=== PATIENT | female | born 1970 | race Caucasian/White ===

== ENCOUNTER 2020-10-10 17:05 | Outpatient (REF) | payer OTHER, SELFPAY | END 2020-10-10 17:06 | disposition home or self-care (01) | LOC: HO.LAB 17:05 | PROVIDERS: PCP Hospitalist; Visit Provider Internal Medicine | DX: Z20.828 Contact with and (suspected) exposure to other viral communicable diseases (principal) | CPT/HCPCS: C9803; U0003 ==

== ENCOUNTER 2020-12-18 16:30 | Outpatient (REF) | payer OTHER, SELFPAY ==
--- NOTE | 2020-12-18 16:52 | XR_ITS ---
EXAMINATION: XR CHEST CLINICAL INFORMATION: Spiral infection. COMPARISON: Chest x-ray 10/05/2018 TECHNIQUE: Frontal view of the chest was obtained. FINDINGS: Lungs are clear. No pulmonary vascular congestion. There is no pleural effusion. The heart size is normal. The cardiac and mediastinal contours are normal. Orthopedic plate and screws at lower cervical spine. XR/XR chest 1V IMPRESSION: Unremarkable examination.
== END 2020-12-18 16:31 | disposition home or self-care (01) ==
LOC: HO.XRAY 16:30
PROVIDERS: PCP Hospitalist; Visit Provider Hospitalist
DX: B34.9 Viral infection, unspecified (principal); Z80.0 Family history of malignant neoplasm of digestive organs
CPT/HCPCS: 71045

== ENCOUNTER 2023-09-30 11:41 | Outpatient (AMB) | payer OTHER, SELFPAY ==
[2023-09-30 11:46] VITALS: BP 98/60; PULSE 94; RESP 13; TEMP 37.2; O2SAT 95; BMI 27.6
--- NOTE | 2023-09-30 11:46 | AM.OFFWIN_ITS ---
Intake Vital Signs 09/30/23 11:46 Height 5 ft 9 in Weight 187 lb BMI 27.6 BP 98/60 Blood Pressure Location Lt brachial Position Sitting Respiration 13 Pulse 94 Pulse Source Pulse Oximeter Temp 98.9 F Temp Source Oral Pulse Oximetry (%) 95 Oxygen Delivery Method Room Air Intake Visit Reasons: frequent urination, blurred vision Intake Note: Patient presents with frequent urination, blurred vision, extreme thirst x4-5 days. Patient Tobacco Use Status: Never used Tobacco Medical Office Rep Required: No Accompanied by: Self / Same As Patient Allergies bee pollen [BEE STINGS] Allergy (Severe, Verified 09/30/23 12:59) ANAPHYLAXIS tramadol Allergy (Severe, Verified 09/30/23 12:59) mental confusion cinnamon [CINNAMON] Allergy (Intermediate, Verified 09/30/23 12:59) HIVES trazodone [TRAZODONE] Allergy (Intermediate, Verified 09/30/23 12:59) PER H&P, ? Medication List - Last Reconciled 09/30/23 by KAMERON Hirsch- amitriptyline 25 mg PO BEDTIME duloxetine 120 mg PO DAILY indomethacin 50 mg PO TID 14 days mirtazapine 7.5 - 15 mg PO BEDTIME PRN Do you need a note to return to daycare/school/sports/work: No HPI HPI Comments History of Present Illness Details Today with complaints sudden onset urinary frequency dry mouth blurred vision palpitations. Reports a few weeks ago developing he has infection which she treated womx-vqy-lxxexav products. She this in itself is bizarre she had no reason to get a yeast infection. The pozc-izt-smbjfsp treatment did help her symptoms. Over the last week or so when she developed urinary frequency. She is urinating 7 times in 1 hour. Her mouth is so dry she does not feel like she can get up to drink. Her vision is blurry reported as seeing double. She is aware of her being in her chest but denies chest pain. During the middle of the night last night she woke up vomiting with some abdominal pain. [facility] Medical History Anxiety Back pain Bilateral carpal tunnel syndrome Chronic pain of left lower extremity DDD (degenerative disc disease) Depression Persistent mood [affective] disorder, unspecified Surgical History History of back surgery History of neck surgery History of tonsillectomy History of tubal ligation History of umbilical hernia repair History of wisdom tooth extraction Family History Father Liver failure Mother No problems noted. Social History Housing: House Alcohol intake: never Patient Tobacco Use Status: Never used Tobacco e-Cigarette/Vaping Use: Never Used Second Hand Smoke Exposure: No Substance Use Type: Marijuana service: No Current occupational status: employed Cognitive needs: Yes (cane) Hearing needs: No Vision needs: No Review of Systems Const All systems reviewed & are unremarkable except as noted in HPI and below Physical Exam Vital Signs: Last Vital Signs Temp 98.9 F 09/30/23 11:46 Pulse 94 09/30/23 11:46 Resp 13 09/30/23 11:46 BP 98/60 09/30/23 11:46 Pulse Ox 95 09/30/23 11:46 Oxygen Delivery Method Room Air 09/30/23 11:46 BMI result Body Mass Index 27.6 Const Other: awake alert oriented, in NAD Orbits sunken MM dry, asked for several glasses of h20 during the visit and voided several times as well Tachycardic, regular Speaking in full sentences Results AMB Urinalysis Dipstick UR Leukocytes Negative Last Edit by Lupis Gandara CMA on 09/30/23 12:00 UR Nitrite Negative Last Edit by Lupis Gandara CMA on 09/30/23 12: 00 UR Urobilinogen Normal Last Edit by Lupis Gandara CMA on 09/30/23 12:00 UR Protein Trace Last Edit by Lupis Gandara CMA on 09/30/23 12:00 UR Ph 5.0 Last Edit by Lupis Gandara CMA on 09/30/23 12:00 UR Blood Large Last Edit by Lupis Gandara CMA on 09/30/23 12:00 UR Specific [place] 1.005 Last Edit by Lupis Gandara CMA on 12:00 UR Ketone Small Last Edit by Lupis Gandara CMA on 09/30/23 12:00 UR Bilirubin Negative Last Edit by Lupis Gandara CMA on 09/30/23 12:00 UR Glucose 2000 Last Edit by Lupis Gandara CMA on 09/30/23 12:00 AMB Random Glucose (hemocue) AMB Random Glucose (hemocue) 600 mg/dL Last Edit by Desmond Gannon MA on 09/30/23 14:04 reading appeared as HI ( 600+) Results Reviewed Results Reviewed: Laboratory Last Values Random Glu (Clinic) 600 mg/dL 09/30/23 14:01 Urine pH (Clinic) 5.0 09/30/23 11:57 Specific [place] (Clinic) 1.005 09/30/23 11:57 Ur Protein (Clinic) Trace 09/30/23 11:57 Ur Ketones (Clinic) Small 09/30/23 11:57 Urine Blood (Clinic) Large 09/30/23 11:57 Urine Nitrite Negative 09/30/23 11:57 Urine Bilirubin (Clinic) Negative 09/30/23 11:57 Urobilinogen (Clinic) Normal 09/30/23 11:57 Leukocyte Esterase (Clinic) Negative 09/30/23 11:57 Urine Glucose (Clinic) 2000 09/30/23 11:57 Assessment & Plan Assessment & Plan (1) Hyperglycemia: Code(s): R73.9 - Hyperglycemia, unspecified Orders: Orders AMB Urinalysis Dipstick Today Z13.9 - Encounter for screening, unspecified Glucose, Whole Blood Today R73.9 - Hyperglycemia, unspecified AMB Hemoglobin A1c Today Z13.9 - Encounter for screening, unspecified Patient Instructions: Random fingerstick done in office today reading ?high ?. During visit in the office lost power, so we were unable to conduct a hemoglobin A1c. Given her complaints, the urine which shows glucose greater than 2000 with small ketones, & the high random blood glucose I have advised her to seek care in the emergency room. She wishes to go to [facility] Emergency Room in [place]. Her is with her and is able to drive her. I called over to [facility] emergency room and spoke with the triage nurse, warm handoff given. Patient was made aware before she left that she needs close follow-up with her PCP in to be sure to follow-up once her acute care workup is complete. Coding Level of Care Code Est Pt Level 3 (22879) Diagnoses Hyperglycemia R73.9
== END 2023-09-30 13:47 | disposition home or self-care (01) ==
PROVIDERS: PCP Hospitalist; Visit Provider Nurse Practitioner Family
DX: Z13.9 Encounter for screening, unspecified (principal); R73.9 Hyperglycemia, unspecified
CPT/HCPCS: 81002; 99213

== ENCOUNTER 2023-10-14 09:51 | Outpatient (AMB) | payer OTHER, SELFPAY ==
--- NOTE | 2023-10-14 10:21 | MHC.PC.OV ---
Vital Signs 10/14/23 10:22 Height 5 ft 9 in Weight 179 lb 8 oz BMI 26.5 BP 122/68 Blood Pressure Location Rt brachial Position Sitting Pulse 67 Pulse Source Pulse Oximeter Pulse Oximetry (%) 95 Oxygen Delivery Method Room Air Intake Visit Reasons: follow up high bs Intake Note: Patient is here to follow up on high bs. Service Consultant Required: No Communications Tech: Not Required per policy Accompanied by: Self / Same As Patient Allergies bee pollen [BEE STINGS] Allergy (Severe, Verified 10/14/23 10:54) ANAPHYLAXIS tramadol Allergy (Severe, Verified 10/14/23 10:54) mental confusion cinnamon [CINNAMON] Allergy (Intermediate, Verified 10/14/23 10:54) HIVES trazodone [TRAZODONE] Allergy (Intermediate, Verified 10/14/23 10:54) PER H&P, ? Medication List - Last Reconciled 10/14/23 by Kayla Roca, [facility]- amitriptyline 25 mg PO BEDTIME duloxetine 120 mg PO DAILY indomethacin 50 mg PO TID 14 days metformin ER 1,000 mg PO QPM mirtazapine 7.5 - 15 mg PO BEDTIME PRN Tobacco use date assessed: 10/14/23 Dental Screening Dental Screen Date: 10/14/23 Did you have a dental visit in the last 12 months?: Yes Did you have a dental problem in the last 6 months where you did not have access to dental care?: No Was dental information given to patient?: Patient has dentist HPI HPI Comments History of Present Illness Details Here today to f/u on new dx of DM Went to [facility] for hyperglycemia. Treated w/ one dose of insulin and sent home w/ Metformin 500mg BID, took 2 days and then stopped d/t GI upset. She does not have a glucometer so has not been testing at home. cont to have dry mouth, urinary freq, blurred vision and a headache. [facility] Medical History Anxiety Back pain Bilateral carpal tunnel syndrome Chronic pain of left lower extremity DDD (degenerative disc disease) Depression Persistent mood [affective] disorder, unspecified Surgical History History of umbilical hernia repair History of back surgery History of tonsillectomy History of tubal ligation History of wisdom tooth extraction History of neck surgery Family History Father Liver failure Mother No problems noted. Social History Housing: House Alcohol intake: never Patient Tobacco Use Status: Never used Tobacco e-Cigarette/Vaping Use: Never Used Second Hand Smoke Exposure: No Substance Use Type: Marijuana service: No Current occupational status: employed Cognitive needs: Yes (cane) Hearing needs: No Vision needs: No Questionnaire Thrive Questionnaire Date Thrive assessed: 01/09/23 CARSON-7 AMB Questionnaire CARSON-7 Date CARSON - 7 assessed: 01/09/23 Source: Developed by Drs. Vahid Mayberry, Maren Harris, Chema Singh and colleagues, with an educational torito from [employer]. Physical exam (Primary Care) Vital Signs: Last Vital Signs Pulse 67 10/14/23 10:22 BP 122/68 10/14/23 10:22 Pulse Ox 95 10/14/23 10:22 Oxygen Delivery Method Room Air 10/14/23 10:22 BMI result Body Mass Index 26.5 Tobacco/Smoking Status: Tobacco use Status Tobacco use date assessed 10/14/23 10/14/23 10:33 Patient Tobacco Use Status Never used Tobacco 10/14/23 10:33 e-Cigarette/Vaping Use Never Used 10/14/23 10:33 Thrive Assessment: Date of Thrive Assessment Date Thrive assessed 01/09/23 10/14/23 10:33 Const Other: awake alert NAD MM dry LS CTAB RRR Results AMB Hemoglobin A1c AMB Hemoglobin A1c 10.8 % Last Edit by FRANCI Banda on 10/14/23 10:38 Results Reviewed Results Reviewed: Laboratory Last Values Hgb A1c (Clinic) 10.8 % (4.0-6.0) H 10/14/23 10:19 Assessment and Plan Assessment & Plan (1) Diabetes mellitus: Code(s): E11.9 - Type 2 diabetes mellitus without complications Qualifiers: Diabetes mellitus complication status: with hyperglycemia Diabetes mellitus manager intermediate insulin use: without manager intermediate use (2) Hyperglycemia: Code(s): R73.9 - Hyperglycemia, unspecified Plan will test add'l labs to determine Type of DM, referrals as placed. She should test blood sugar QID at home. Lots of edu provided to her about the new dx. She should f/u with PCP group in 2 weeks. Bring glucose log w/ her. Lipid profile will need to be run when she is fasting, which is not today. Orders: Orders C Peptide Today E11.9 - Type 2 diabetes mellitus without complications, R73.9 - Hyperglycemia, unspecified Insulin Auto Antibody Today E11.9 - Type 2 diabetes mellitus without complications, R73.9 - Hyperglycemia, unspecified Liver Panel Today E11.9 - Type 2 diabetes mellitus without complications, R73.9 - Hyperglycemia, unspecified AMB Hemoglobin A1c Today R73.9 - Hyperglycemia, unspecified ZNT8 Antibodies Today E11.9 - Type 2 diabetes mellitus without complications, R73.9 - Hyperglycemia, unspecified Glutamic acid decarboxylase Ab Today E11.9 - Type 2 diabetes mellitus without complications, R73.9 - Hyperglycemia, unspecified Islet Cell Antibody Scrn/Titer Today E11.9 - Type 2 diabetes mellitus without complications, R73.9 - Hyperglycemia, unspecified Referrals Endocrinology Referral E11.9 - Type 2 diabetes mellitus without complications, R73.9 - Hyperglycemia, unspecified Diabetes Education Referral E11.9 - Type 2 diabetes mellitus without complications, R73.9 - Hyperglycemia, unspecified Diabetic Eye Exam Referral E11.9 - Type 2 diabetes mellitus without complications, R73.9 - Hyperglycemia, unspecified Medications: New metformin ER 1,000 mg PO QPM 30 tabs 0RF blood-glucose meter (OneTouch Verio Flex Start kit) As directed 1 ea 0RF Coding Level of Care Code Est Pt Level 5 (13075) Diagnoses Diabetes mellitus E11.9 Diabetes mellitus complication status: with hyperglycemia Diabetes mellitus retirement insulin use: without retirement use Hyperglycemia R73.9
[2023-10-14 10:22] VITALS: BP 122/68; PULSE 67; O2SAT 95; BMI 26.5
== END 2023-10-14 11:25 | disposition home or self-care (01) ==
PROVIDERS: PCP Hospitalist; Visit Provider Nurse Practitioner Family
DX: E11.65 Type 2 diabetes mellitus with hyperglycemia (principal)
CPT/HCPCS: 83036; 99214

== ENCOUNTER 2023-10-14 11:23 | Outpatient (REF) | payer OTHER, SELFPAY ==
[2023-10-14 14:59] LABS: MANUAL DIFF FLAG NO
[2023-10-14 15:11] LABS: Basophils Percent Auto 0.7 % (0-2); Eosinophils Absolute Auto 0.2 X10*3/uL (0.0-0.4); Eosinophils Percent Auto 3.6 % (0-4); Hematocrit 45.8 % (37.0-47.0); Hemoglobin 15.4 g/dl (12.0-16.0); Imm Gran Abs Auto 0.01 X10*3/uL (0.00-0.03); Imm Gran Pct Auto 0.2 % (0.0-0.4); Lymphocytes Absolute Auto 2.6 X10*3/uL (1.2-4.9); Lymphocytes Percent Auto 46.7 % (20-40); Mean Corpuscular HGB Conc 33.6 g/dl (31.0-35.0); Mean Corpuscular Volume 92.3 fL (80.0-98.0); Mean Platelet Volume 10.8 fL (9.4-12.3); Monocytes Absolute Auto 0.2 X10*3/uL (0.1-1.2); Monocytes Percent Auto 3.8 % (2-11); Neutrophils Absolute Auto 2.5 x10*3/uL (2.0-8.3); Platelet Count 290 X10*3/uL (160-400); Red Blood Count 4.96 X10*6/uL (4.20-5.50); Red Cell Distribution Width 12.5 % (11.0-16.0); White Blood Count 5.5 X10*3/uL (4.8-10.8)
[2023-10-14 15:27] LABS: Uric Acid 2.3 mg/dL (2.4-5.7)
[2023-10-14 15:33] LABS: Alanine Aminotransferase 21 U/L (0-31); Albumin Level 4.2 g/dL (3.5-5.0); Alkaline Phosphatase 117 U/L (39-117); Anion Gap 10 (12-20); Aspartate Amino Transferase 17 U/L (5-31); Bilirubin Direct < 0.2 mg/dL (0.0-0.5); Bilirubin Total 0.2 mg/dL (0.0-1.0); Blood Urea Nitrogen 17 mg/dL (9-16); Carbon Dioxide 27 mmol/L (22-29); Chloride 104 mmol/L (96-108); Cholesterol 227 mg/dL (<200); Estimated Glomerular Filt Rate > 60; Glucose Fasting 335 mg/dL (60-99); HDL Cholesterol 36 mg/dL (>40); LDL Cholesterol Calculated 127 mg/dL (<100); Potassium 4.4 mmol/L (3.3-5.1); Sodium 137 mmol/L (135-145); Total Protein 7.2 g/dL (6.5-8.0); Triglycerides 321 mg/dL (<150)
[2023-10-14 15:44] LABS: TSH reflex Free T4 1.27 uIU/mL (0.32-4.0)
[2023-10-16 04:54] LABS: C Peptide 2.85 ng/mL (0.80-3.85)
[2023-10-17 20:28] LABS: Glutamic acid decarboxylase Ab <5 IU/mL (<5)
[2023-10-20 23:23] LABS: Islet Cell Antibody Screen NEGATIVE (NEGATIVE)
[2023-10-21 19:53] LABS: ZNT8 Antibodies <10 U/mL (<15)
[2023-10-24 19:34] LABS: Insulin Auto Antibody <0.4 U/mL (<0.4)
== END 2023-10-14 11:24 | disposition home or self-care (01) ==
LOC: HO.WFDLDS 11:23
PROVIDERS: Hospitalist; Visit Provider Nurse Practitioner Family
DX: M10.9 Gout, unspecified (principal); E66.3 Overweight; E11.65 Type 2 diabetes mellitus with hyperglycemia
CPT/HCPCS: 36415; 80053; 80061; 80076; 82248; 84443; 84550; 84681; 85025; 86337; 86341

== ENCOUNTER 2023-12-16 09:53 | Outpatient (AMB) | payer OTHER, SELFPAY ==
--- NOTE | 2023-12-16 10:09 | A.OFFPC_ITS ---
Vital Signs 12/16/23 10:10 Height 5 ft 9 in Weight 180 lb 0.2 oz BMI 26.6 BP 102/78 Blood Pressure Location Lt brachial Position Sitting Pulse 73 Pulse Source Pulse Oximeter Pulse Oximetry (%) 97 Oxygen Delivery Method Room Air Intake Visit Reasons: R Elbow pain Intake Note: pt states right elbow pain and right knee pain X2-3weeks with burning sensation Senior Adults Director Required: No Allergies bee pollen [BEE STINGS] Allergy (Severe, Verified 12/16/23 10:23) ANAPHYLAXIS tramadol Allergy (Severe, Verified 12/16/23 10:23) mental confusion cinnamon [CINNAMON] Allergy (Intermediate, Verified 12/16/23 10:23) HIVES trazodone [TRAZODONE] Allergy (Intermediate, Verified 12/16/23 10:23) PER H&P, ? Medication List - Last Reconciled 12/16/23 by ZACHARY HirschP-BC alcohol swabs (BD Alcohol Swabs) pad topical amitriptyline 25 mg PO BEDTIME blood-glucose meter (OneTouch Verio Flex Meter) As directed blood-glucose meter (OneTouch Verio Flex Start kit) As directed duloxetine 120 mg PO DAILY empagliflozin (Jardiance) 10 mg PO DAILY hydroxyzine pamoate 25 mg PO TID indomethacin 50 mg PO TID 14 days insulin glargine (Lantus Solostar U-100 Insulin) 10 units subcut BEDTIME metformin ER 1,000 mg PO QPM mirtazapine 7.5 - 15 mg PO BEDTIME PRN pen needle, diabetic (BD Ultra-Fine Short Pen Needle) As directed prazosin 2 mg PO BID Tobacco use date assessed: 12/16/23 HPI HPI Comments History of Present Illness Details Here today with complaints of right elbow pain. Reports onset about a few weeks ago in the setting frequent repetitive movement of wheelchairs. Since onset the pain is worse. She has noted some swelling. Denies any overt injury. Using Epsom salt to help without relief. Leaning on the elbow does increase the pain as does normal range of motion. Denies fever chills or trauma. Also complains of pain in the right knee. Reports that this is chronic and has been present for years. Over the last few weeks she has noticed that when climbing stairs the knee has a cracking sensation and feels like it is going to give out. Denies any new injury to the knee. Further denies any redness swelling fever or chills. [facility] Medical History Anxiety Back pain Bilateral carpal tunnel syndrome Chronic pain of left lower extremity DDD (degenerative disc disease) Depression Persistent mood [affective] disorder, unspecified Surgical History History of umbilical hernia repair History of back surgery History of tonsillectomy History of tubal ligation History of wisdom tooth extraction History of neck surgery Family History Father Liver failure Mother No problems noted. Social History Housing: House Alcohol intake: never Patient Tobacco Use Status: Never used Tobacco e-Cigarette/Vaping Use: Never Used Second Hand Smoke Exposure: No Substance Use Type: Marijuana service: No Current occupational status: employed Cognitive needs: Yes (cane) Hearing needs: No Vision needs: No Questionnaire Thrive Questionnaire Date Thrive assessed: 01/09/23 AUDIT C Alcohol Use Questionnaire (AUDIT-C) 1. How often do you have a drink containing alcohol?: Never Total Score: 0 CARSON-7 AMB Questionnaire CARSON-7 Date CARSON - 7 assessed: 01/09/23 Source: Developed by Drs. Vahid Mayberry, Maren Harris, Chema Singh and colleagues, with an educational torito from [employer]. Review of Systems Const All systems reviewed & are unremarkable except as noted in HPI and below Physical exam (Primary Care) Vital Signs: Last Vital Signs Pulse 73 12/16/23 10:10 BP 102/78 12/16/23 10:10 Pulse Ox 97 12/16/23 10:10 Oxygen Delivery Method Room Air 12/16/23 10:10 BMI result Body Mass Index 26.6 Tobacco/Smoking Status: Tobacco use Status Tobacco use date assessed 12/16/23 12/16/23 10:15 Patient Tobacco Use Status Never used Tobacco 12/16/23 10:15 e-Cigarette/Vaping Use Never Used 12/16/23 10:15 Thrive Assessment: Date of Thrive Assessment Date Thrive assessed 01/09/23 12/16/23 10:15 Const Other: Awake alert oriented no acute distress Right elbow full range of motion active and passive, no erythema, warmth, ecchymosis, deformity. Pain over olecranon with pressure. Right knee with full range of motion active and passive, no erythema, warmth, ecchymosis, deformity. Positive crepitus with range of motion. Ambulating with normal gait without assistive device. Assessment and Plan Assessment & Plan (1) Knee pain, right anterior: Code(s): M25.561 - Pain in right knee (2) Crepitus of joint of right knee: Code(s): M23.8X1 - Other internal derangements of right knee (3) Olecranon bursitis of right elbow: Code(s): M70.21 - Olecranon bursitis, right elbow Plan Total time spent caring for the patient today was 35 minutes. This includes time spent before the visit reviewing the chart, time spent during the visit, and time spent after the visit on documentation Orders: Orders XR knee RT 4V Today M23.8X1 - Other internal derangements of right knee, M25.561 - Pain in right knee Referrals Orthopedics Referral M23.8X1 - Other internal derangements of right knee, M25.561 - Pain in right knee Medications: Changed From indomethacin administer with food or milk 50 mg PO TID 14 days 42 caps 0RF To indomethacin administer with food or milk 50 mg PO TID 14 days PRN 42 caps 0RF pain Patient Instructions: ADVISED TO PURCHASE AN [id number] COUNTERFORCE BAND USE DIRECTED. OKAY TO CONTINUE USING EPSOM SALT SOAKS. ADVISED TO PERFORM THE HOME EXERCISES THAT WERE PROVIDED TO HER AT THE VISIT TODAY. IT ALSO PRESCRIBED AND SO THAT SHE CAN USE NEEDED FOR PAIN. FOR HER KNEE PAIN I HAVE ORDERED AN X-RAY AND REFER HER TO ORTHOPEDICS. SHE SHOULD FOLLOW UP WITH ORTHO. Coding Level of Care Code Est Pt Level 4 (48215) Diagnoses Knee pain, right anterior M25.561 Crepitus of joint of right knee M23.8X1 Olecranon bursitis of right elbow M70.21
[2023-12-16 10:10] VITALS: BP 102/78; PULSE 73; O2SAT 97; BMI 26.6
== END 2023-12-16 10:38 | disposition home or self-care (01) ==
PROVIDERS: PCP Hospitalist; Visit Provider Nurse Practitioner Family
DX: M25.561 Pain in right knee (principal); M23.8X1 Other internal derangements of right knee; M70.21 Olecranon bursitis, right elbow
CPT/HCPCS: 99214

== ENCOUNTER 2023-12-28 16:52 | Outpatient (REF) | payer SELFPAY ==
--- NOTE | ~2023-12-28 | XR_ITS ---
EXAMINATION: XR KNEE, RIGHT CLINICAL INFORMATION: Other internal arrangement of right knee COMPARISON: None available. TECHNIQUE: Four views of the right knee. FINDINGS: No fracture or joint effusion. Alignment is anatomic. Joint spaces are maintained. No abnormal soft tissue calcification. XR/XR knee RT 4V IMPRESSION: Normal right knee.
== END 2023-12-28 16:53 | disposition home or self-care (01) ==
LOC: HO.XRAY 16:52
PROVIDERS: Visit Provider Nurse Practitioner Family
DX: M25.561 Pain in right knee (principal); M23.8X1 Other internal derangements of right knee
CPT/HCPCS: 73564

== ENCOUNTER 2024-01-05 10:09 | Outpatient (REF) | payer SELFPAY ==
--- NOTE | ~2024-01-05 | XR_ITS ---
EXAMINATION: XR KNEE AP STANDING X-RAY RIGHT KNEE SUNRISE VIEW CLINICAL INFORMATION: Pain. COMPARISON: Radiograph right knee 12/28/2023. TECHNIQUE: AP bilateral standing view of the knees was obtained. Single sunrise view of the right knee. FINDINGS: No fracture or subluxation. Mild joint space narrowing in the medial compartments bilaterally. 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 No osseous erosions. No unusual soft tissue calcifications. XR/XR knee standing BI IMPRESSION: 1. No acute fractures or malalignment. 2. 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 3. 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
--- NOTE | ~2024-01-05 | XR_ITS ---
EXAMINATION: XR KNEE AP STANDING X-RAY RIGHT KNEE SUNRISE VIEW CLINICAL INFORMATION: Pain. COMPARISON: Radiograph right knee 12/28/2023. TECHNIQUE: AP bilateral standing view of the knees was obtained. Single sunrise view of the right knee. FINDINGS: No fracture or subluxation. Mild joint space narrowing in the medial compartments bilaterally. 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 No osseous erosions. No unusual soft tissue calcifications. XR/XR knee RT 1V IMPRESSION: 1. No acute fractures or malalignment. 2. 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 3. 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
== END 2024-01-05 10:10 | disposition home or self-care (01) ==
LOC: HO.HOSX 10:09
PROVIDERS: Visit Provider Physician Assistant
DX: S80.01XA Contusion of right knee, initial encounter (principal); E11.9 Type 2 diabetes mellitus without complications
CPT/HCPCS: 20610; 73560; 73565; 99202; J1020

== ENCOUNTER 2024-01-05 10:44 | Outpatient (AMB) | payer SELFPAY ==
[2024-01-05 10:57] VITALS: BMI 26.6
--- NOTE | 2024-01-05 10:57 | MHC.OFFVIS ---
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 Patient reports ongoing pain for a couple months. She states that her pain is focused on the medial aspect of the knee. Hx of injury about 4 months ago. Hx of NSAIDs mild relief. Hx of Knee Brace with mild relief. She states that she was moving her bed and she tripped on the bed frame landing on her right knee. Allergies bee pollen [BEE STINGS] Allergy (Severe, Verified 01/05/24 11:00) ANAPHYLAXIS tramadol Allergy (Severe, Verified 01/05/24 11:00) mental confusion cinnamon [CINNAMON] Allergy (Intermediate, Verified 01/05/24 11:00) HIVES trazodone [TRAZODONE] Allergy (Intermediate, Verified 01/05/24 11:00) PER H&P, ? HPI BIOLOGICAL ENGINEER-Right knee pain HPI Details 53-year-old female who presents in the office today, as a new patient, for an evaluation of right knee pain. The patient was seen by her PCP on 12/16/2023 where she was sent for x-rays. While in the office today the patient reports an injury to the knee about 4 months ago, in 08/2023, when she was moving her bed when she tripped on the bed frame causing her to land on her knee. She claims her pain is on the medial aspect of the right knee. She reports using NSAIDs and a knee brace with mild relief. Patient has a significant medical history of diabetes mellitus on insulin. [facility] Medical History Anxiety Back pain Bilateral carpal tunnel syndrome Chronic pain of left lower extremity DDD (degenerative disc disease) Depression Persistent mood [affective] disorder, unspecified Surgical History History of umbilical hernia repair History of back surgery History of tonsillectomy History of tubal ligation History of wisdom tooth extraction History of neck surgery Family History Father Liver failure Mother No problems noted. 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 No ecchymosis, erythema, or joint effusion. No tenderness to palpation to the medial or lateral joint lines. Pain with patella grind. No excessive laxity involving the patella. Full knee extension and flexion. Negative Rebecca's. Negative anterior drawer. NVI. Office Procedures Joint Injection/Drain Joint Injection/Drain Primary Site: right knee Prep: site was prepped using aseptic technique, ethochloride spray was applied and injection warnings given Injected: 40 mg of, DepoMedrol, with 8 mL of (2% plain lido ) and in the joint Approach Used: anterolateral Procedure: The patient tolerated the procedure well, but had some pain with the injection and there was some relief with the local anesthesia Coding 46098 - Large joint Procedure code (CPT) selection complete Assessment & Plan Assessment & Plan (1) Contusion of right knee: Code(s): S80.01XA - Contusion of right knee, initial encounter (2) Diabetes mellitus: Code(s): E11.9 - Type 2 diabetes mellitus without complications Qualifiers: Diabetes mellitus complication status: with hyperglycemia Diabetes mellitus long-term insulin use: without long-term use Plan Ms. Huertas is a 53-year-old female who presents in the office today, as a new patient, for an evaluation of right knee pain. The patient was seen by her PCP on 12/16/2023 where she was sent for x-rays. While in the office today the patient reports an injury to the knee about 4 months ago, in 08/2023, when she was moving her bed when she tripped on the bed frame causing her to land on her knee. She claims her pain is on the medial aspect of the right knee. She reports using NSAIDs and a knee brace with mild relief. Patient has a significant medical history of diabetes mellitus on insulin. The patient was offered a cortisone injection in the right knee with 40 mg of DepoMedrol. The patient was explained the risk, benefits, and alternatives to receiving this injection. After receiving consent for the injection, the patient had the procedure done while in office today. The patient tolerated the procedure well with no complications. Due to the patient?s history of diabetes, they were instructed to monitor her blood glucose level. The patient was informed that they could see a rise in their numbers and if the numbers became too high, they were instructed to call their PCP. The patient was also informed that they could have facial flushing as a side effect of the injection but this will pass. In the event this does not given the patient relief the next action would be to move forward with formal physical therapy or a possible MRI. Follow up will be PRN, or sooner if needed. X-rays of the right knee which were obtained while in the office today and were reviewed by me, Suzanne Colmenares PA-C, revealed no acute fracture or dislocation. X-rays of the right knee, obtained on 12/28/2023, revealed no acute fracture or dislocation. Orders: Orders XR knee standing BI Today M25.569 - Pain in unspecified knee XR knee RT 1V Today M25.569 - Pain in unspecified knee Patient Instructions: Scribed by Sherron Patterson medical program specialist, for Suzanne Colmenares PA-C on 01/05/2024 at 10:48 am, EST. Coding Level of Care Code New Pt Level 4 (34173) Diagnoses Contusion of right knee S80.01XA Diabetes mellitus E11.9 Diabetes mellitus complication status: with hyperglycemia Diabetes mellitus intermediate card tender insulin use: without long-term use CPT Codes Coding - 81924 Large joint: 57167 - Large joint ([id number])
== END 2024-01-05 11:35 | disposition home or self-care (01) ==
PROVIDERS: PCP Nurse Practitioner Family; Visit Provider Physician Assistant
DX: S80.01XA Contusion of right knee, initial encounter (principal); W01.0XXA Fall on same level from slipping, tripping and stumbling without subsequent striking against object, initial encounter; E11.9 Type 2 diabetes mellitus without complications
CPT/HCPCS: 20610; 99204

== ENCOUNTER 2024-02-05 10:06 | Outpatient (AMB) | payer OTHER, SELFPAY ==
[2024-02-05 10:11] VITALS: BP 132/62; PULSE 91; RESP 12; TEMP 35.9; O2SAT 98; BMI 26.8
--- NOTE | 2024-02-05 10:11 | MHC.PC.OV ---
Vital Signs 02/05/24 10:11 Height 5 ft 8 in Weight 176 lb BMI 26.8 BP 132/62 Blood Pressure Location Rt brachial Position Sitting Respiration 12 Pulse 91 Pulse Source Pulse Oximeter Temp 96.6 F L Temp Source Temporal Artery Scan Pulse Oximetry (%) 98 Oxygen Delivery Method Room Air Intake Visit Reasons: Cramps Intake Note: Patient reports feeling cramping in her pelvic area radiating to her low-mid back. Patient admits she has not taken her diabetic diagnosis well and reports she is trying to get back on track. Patient states her urine output is very little at a time. Community Planning Technician Required: No Accompanied by: Self / Same As Patient Allergies bee pollen [BEE STINGS] Allergy (Severe, Verified 02/05/24 10:39) ANAPHYLAXIS tramadol Allergy (Severe, Verified 02/05/24 10:39) mental confusion cinnamon [CINNAMON] Allergy (Intermediate, Verified 02/05/24 10:39) HIVES trazodone [TRAZODONE] Allergy (Intermediate, Verified 02/05/24 10:39) PER H&P, ? Medication List - Last Reconciled 02/05/24 by KAMERON Hirsch-BC alcohol swabs (BD Alcohol Swabs) pad topical amitriptyline 25 mg PO BEDTIME blood-glucose meter (OneTouch Verio Flex Meter) As directed blood-glucose meter (OneTouch Verio Flex Start kit) As directed duloxetine 120 mg PO DAILY empagliflozin (Jardiance) 10 mg PO DAILY insulin glargine (Lantus Solostar U-100 Insulin) 10 units subcut BEDTIME mirtazapine 7.5 - 15 mg PO BEDTIME PRN pen needle, diabetic (BD Ultra-Fine Short Pen Needle) As directed prazosin 2 mg PO BID Tobacco use date assessed: 12/16/23 HPI HPI Comments History of Present Illness Details Here today w/ cramps in abd, RLQ pain over all feeling crappy for the last week + nausea, poor po intake, T 101 last night, took Motrin Last BM yesterday normal Denies vomiting, no vaginal bleeding or discharge Last blood sugar was 138mg/dl yesterday Unintentional wt loss Denies abd surgery. Holding down on the RLQ provides some relief of the pain [facility] Medical History Anxiety Back pain Bilateral carpal tunnel syndrome Chronic pain of left lower extremity DDD (degenerative disc disease) Depression Persistent mood [affective] disorder, unspecified Surgical History History of umbilical hernia repair History of back surgery History of tonsillectomy History of tubal ligation History of wisdom tooth extraction History of neck surgery Family History Father Liver failure Mother No problems noted. 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 Vahid Mayberry, Maren Harris, Chema Singh and colleagues, with an educational torito from [employer]. Review of Systems Const All systems reviewed & are unremarkable except as noted in HPI and below Physical exam (Primary Care) Vital Signs: Last Vital Signs Temp 96.6 F L 02/05/24 10:11 Pulse 91 02/05/24 10:11 Resp 12 02/05/24 10:11 BP 132/62 02/05/24 10:11 Pulse Ox 98 02/05/24 10:11 Oxygen Delivery Method Room Air 02/05/24 10:11 BMI result Body Mass Index 26.8 Tobacco/Smoking Status: Tobacco use Status Tobacco use date assessed 12/16/23 02/05/24 10:17 Patient Tobacco Use Status Never used Tobacco 02/05/24 10:17 e-Cigarette/Vaping Use Never Used 02/05/24 10:17 Thrive Assessment: Date of Thrive Assessment Date Thrive assessed 01/09/23 02/05/24 10:17 Const Other: awake alert mildly ill appearing scleras nonicteric MMM RRR LS CTAB Abd gaurding RLQ, + rebound tenderness RLQ, + psoas sign, hypoactive BS x 4, Assessment and Plan Assessment & Plan (1) Acute abdomen: Comment: [place] [facility] [place]. Code(s): R10.0 - Acute abdomen Plan Total time spent caring for the patient today was 30 minutes. This includes time spent before the visit reviewing the chart, time spent during the visit, and time spent after the visit on documentation This note is constructed using voice recognition software. While every effort has been made to ensure accuracy in test baker, still errors may have been included Sometimes, these errors may affect the content or meaning of the given sentence . Patient Instructions: NPO Private vehicle directly [place] [facility] [place] further eval and tx of acute abd. Coding Level of Care Code Est Pt Level 4 (42299) Diagnoses Acute abdomen R10.0
== END 2024-02-05 10:46 | disposition home or self-care (01) ==
PROVIDERS: PCP Nurse Practitioner Family; Visit Provider Nurse Practitioner Family
DX: R10.0 Acute abdomen (principal)
CPT/HCPCS: 99214

== ENCOUNTER 2024-02-05 11:19 | Emergency (ER) | payer OTHER, SELFPAY ==
[2024-02-05 11:37] VITALS: BP 127/77; PULSE 69; RESP 17; TEMP 36.3; O2SAT 94; BMI 21.4
--- NOTE | 2024-02-05 11:40 | ED_ITS ---
HPI - General Adult General Chief complaint: Abdominal Pain Stated complaint: Abd pain right side Time Seen by Provider: 02/05/24 16:19 Source: patient Mode of arrival: ambulatory Limitations: no limitations History of Present Illness HPI narrative: Patient is a 54 year old assigned female at with a history of DM, anxiety, and depression presenting to the emergency department today with abdominal pain. Patient states that over the last week she has had abdominal pain. Patient denies any dizziness, lightheadedness, nausea, vomiting, fever, chills, blurry vision, double vision, loss of vision, chest pain, difficulty breathing, shortness of breath, back pain, night sweats, pain with urination, increased urinary frequency, increased urinary urgency, blood in her urine or stool, syncope or a near syncopal episode, recent trauma or falls, bowel incontinence, bladder incontinence, bowel retention, bladder retention, or any other complaints at this time. Onset (ago): week(s) (1) Location: abdomen Radiation: non-radiation Severity: mild Severity scale (1-10): 3 Quality: aching and dull Pain Consistency: constant Relieving factors: none Exacerbating factors: none Associated symptoms: denies other symptoms Treatments prior to arrival: none Related Data Home Medications Medication Instructions Recorded Confirmed amitriptyline 25 mg tablet 25 mg PO BEDTIME 10/30/20 12/16/23 duloxetine 60 mg capsule,delayed 120 mg PO DAILY 12/18/20 12/16/23 release mirtazapine 15 mg tablet 7.5 - 15 mg PO BEDTIME PRN insomnia 01/09/23 12/16/23 alcohol swabs (BD Alcohol Swabs) pad topical 12/16/23 12/16/23 blood-glucose meter (OneTouch #1 ea 12/16/23 12/16/23 Verio Flex Meter) empagliflozin 10 mg tablet 10 mg PO DAILY 12/16/23 12/16/23 (Jardiance) insulin glargine 100 unit/mL (3 10 unit subcut BEDTIME 12/16/23 12/16/23 mL) subcutaneous pen (Lantus Solostar U-100 Insulin) pen needle, diabetic 31 gauge x #1,200 ea 12/16/23 12/16/2316 (BD Ultra-Fine Short Pen Needle) prazosin 2 mg capsule 2 mg PO BID 12/16/23 12/16/23 Previous Rx's Medication Instructions Recorded blood-glucose meter (OneTouch #1 ea 10/16/23 Verio Flex Start kit) cefuroxime axetil 250 mg tablet 250 mg PO BID 7 days #14 tabs 02/05/24 fluconazole 150 mg tablet 150 mg PO Q3D 2 doses #2 tabs 02/05/24 Allergies Allergy/AdvReac Type Severity Reaction Status Date / Time bee pollen [BEE STINGS] Allergy Severe ANAPHYLAXIS Verified 02/05/24 10:39 tramadol Allergy Severe mental Verified 02/05/24 10:39 confusion cinnamon [CINNAMON] Allergy Intermediate HIVES Verified 02/05/24 10:39 trazodone [TRAZODONE] Allergy Intermediate PER H&P, ? Verified 02/05/24 10:39 Review of Systems 2 Constitutional: Constitutional: Reports no additional constitutional complaints, Denies chills, Denies fever(s) and Denies night sweats Eyes: Eyes: Reports no additional eye complaints, Denies blurry vision, Denies change in vision, Denies diplopia, Denies eye discharge, Denies loss of vision and Denies eye pain ENT: Denies dizziness Cardiovascular: Cardiovascular: Reports no additional cardiovascular complaints, Denies chest pain, Denies lightheadedness, Denies Loss of Consciousness and Denies dyspnea Respiratory: Respiratory: Reports no additional respiratory complaints and Denies dyspnea Gastrointestinal: Gastrointestinal: Reports no additional gastrointestinal complaints, Reports abdominal pain, Denies melena, Denies hematochezia, Denies change in bowel habits and Denies change in stool character Genitourinary: Genitourinary: Denies hematuria, Denies urinary frequency, Denies dysuria, Denies urinary incontinence, Denies urinary hesitancy and Denies urinary urgency Musculoskeletal: Musculoskeletal: Reports no additional musculoskeletal complaints, Denies numbness and Denies tingling Neurologic: Denies dizziness, Denies loss of vision, Denies numbness and Denies tingling Psychiatric: Psychiatric: Reports no additional psychiatric complaints Endocrine: Endocrine: Reports no additional endocrine complaints Hematologic/Lymphatic: Hematologic/Lymphatic: Reports no additional hematologic/lymphatic complaints Allergic/Immunologic: Allergic/Immunologic: Reports no additional allergic/immunologic complaints PMFSH Past Medical History Attestation statement: The following information was validated with the patient. Source: old records reviewed and nursing notes reviewed Medical History Acute abdomen Contusion of right knee Knee pain, right anterior Hyperglycemia Normal physical exam Over weight Colon cancer screening Ingrown toenail without infection Screening mammogram for breast cancer Left hand pain Viral illness Chronic pain of left lower extremity DDD (degenerative disc disease) Back pain Bilateral carpal tunnel syndrome Persistent mood [affective] disorder, unspecified Anxiety Depression Surgical History History of umbilical hernia repair History of back surgery History of tonsillectomy History of tubal ligation History of wisdom tooth extraction History of neck surgery Family History Family History Father Liver failure Mother No problems noted. 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 : [employer] Cognitive needs: Yes (cane) Hearing needs: No Vision needs: No Physical Exam ED Vital Signs: Vital Signs - 24 hr 02/05/24 11:37 02/05/24 16:19 Temperature 97.4 F 98.3 F Pulse Rate 69 85 Respiratory Rate 17 17 Blood Pressure 127/77 142/82 H Pulse Oximetry 94 99 Oxygen Delivery Method Room Air Room Air BMI result Body Mass Index 21.4 Const General: cooperative, no acute distress, alert and awake Nutritional Appearance: well nourished Orientation/consciousness: patient oriented x3 Limitations: no limitations HENMT Head: Yes normal to inspection and Yes atraumatic Ears: hearing grossly normal bilaterally and external ears normal General nose exam: Normal external nose present, no nasal discharge noted and no epistaxis Face and sinus: Yes normal facial exam, No abrasion and No laceration Mouth: Normal oral and palatal mucosa present, no drooling and no muffled voice Eyes General: appearance normal, both eyes and all related structures Periorbital: periorbital findings normal Eyelids: Yes eyelids normal Conjunctivae: conjunctivae normal Pupils: Equal, round and reactive pupils present EOM: EOMs intact bilaterally Neck Neck: Yes normal visual inspection, Yes full ROM and Yes no lymphadenopathy Chest Chest palpation & inspection: normal inspection of the chest Resp Effort & Inspection: normal respiratory effort and able to speak in complete sentences GI Inspection: Yes normal to inspection Palpation (GI): Soft to palpation, not firm, nontender and no guarding Neuro General: patient oriented x3 and moves all extremities Cranial nerves: Yes Equal, round and reactive pupils present Cognition (Neuro): normal cognition Motor exam (neuro): 5/5 motor strength present throughout Sensory Exam: Normal double simultaneous stimulation for sensation Coordination: [id number] test normal Extrem General: Yes normal to inspection, Yes full ROM and Yes capillary refill normal Psych Appearance: grossly normal Mental Status: mental status grossly normal Affect: normal affect Attitude: cooperative Thought process: Normal thought process present Thought content: Normal thought content present Insight: Good insight present (Psych) Course Course Course Narrative: RME performed by Crystal Cardona PA-C. Patient is a 54 year old assigned female at presenting to the emergency department with RLQ abdominal pain over a week with nausea and vomiting. Detailed physical exam and review of systems are deferred to the therapeutic program worker. Labs and swabs ordered. Patient placed back in the waiting room pending room availability and results. Medical Decision Making Medical Decision Making MDM Narrative: Patient is a 54 year old assigned female at with a history of DM, anxiety, and depression presenting to the emergency department today with abdominal pain. Patient's limited physical exam performed in triage was unremarkable. Patient's blood work was unremarkable. Patient's urine showed evidence of infection. Given the patient's symptoms, will treat. I explained my physical exam findings as well as all test results to the patient. I answered all questions asked by the patient.I stressed the importance of the patient taking her medication as prescribed. I stressed the importance of the patient following up with her primary care provider. I stressed the importance of the patient returning to the emergency department immediately if her symptoms were to worsen or if she were to develop any dizziness, shortness of breath, difficulty breathing, chest pain, blurry vision, loss of vision, nausea, vomiting, abdominal pain, fever, chills, back pain, or any other complaints. Patient verbalized agreement and understanding with this treatment plan and discharge. Differential Diagnosis Differential Diagnoses: The differential diagnosis associated with the presentation includes Abdominal pain UTI Gastroenteritis Admission/Observation Consideration of admission/observation: Escalation of care including admission/observation considered Patient would have been admitted to the hospital had her work up had any findings where hospital admission was appropriate and her clinical presentation warranted hospital admission. Lab Data [facility] Lab Attestation statement: I reviewed the patient's lab results. My interpretation of these results are in the [facility] Rationale portion of this note. 02/05/24 11:53 02/05/24 11:53 Labs: Lab Results 02/05/24 02/05/24 Range/Units 11:53 15:52 WBC 5.8 (4.8-10.8) X10*3/uL RBC 4.83 (4.20-5.50) X10*6/uL Hgb 15.3 (12.0-16.0) g/dl Hct 44.1 (37.0-47.0) % MCV 91.3 (80.0-98.0) fL MCH 31.7 (27.0-33.0) pg MCHC 34.7 (31.0-35.0) g/dl RDW 12.8 (11.0-16.0) % Plt Count 329 (160-400) X10*3/uL MPV 9.3 L (9.4-12.3) fL Immature Gran % (Auto) 0.2 (0.0-0.4) % Neut % (Auto) 55.3 (45-73) % Lymph % (Auto) 36.3 (20-40) % [place] % (Auto) 4.9 (2-11) % Eos % (Auto) 2.6 (0-4) % Baso % (Auto) 0.7 (0-2) % Lymph # (Auto) 2.1 (1.2-4.9) X10*3/uL [place]ee # (Auto) 0.3 (0.1-1.2) X10*3/uL Eos # (Auto) 0.2 (0.0-0.4) X10*3/uL Baso # (Auto) 0.0 (0.0-0.2) X10*3/uL Abs Immat Gran (auto) 0.01 (0.00-0.03) X10*3/uL Absolute Neuts (auto) 3.2 (2.0-8.3) x10*3/uL Absolute Nucleated RBC 0.000 (0.0-0.012) X10*3/uL Nucleated RBC % (auto) 0.0 (0.0-0.2) /100WBC Sodium 137 (135-145) mmol/L Potassium 4.1 (3.3-5.1) mmol/L Chloride 106 (96-108) mmol/L Carbon Dioxide 27 (22-29) mmol/L Anion Gap 8 L (12-20) BUN 13 (9-16) mg/dL Creatinine 0.82 (0.5-1.4) mg/dL Estim Creat Clear Calc 83.3 Estimated GFR > 60 Random Glucose 161 H (60-115) mg/dL Calcium 9.5 (8.4-10.2) mg/dL Magnesium 2.0 (1.6-2.6) mg/dL Total Bilirubin 0.3 (0.0-1.0) mg/dL AST 15 (5-31) U/L ALT 23 (0-31) U/L Alkaline Phosphatase 108 (39-117) U/L Total Protein 7.4 (6.5-8.0) g/dL Albumin 4.2 (3.5-5.0) g/dL Urine Color Yellow Urine Appearance Cloudy Urine pH 5.5 (5.0-9.0) Ur Specific Whick 1.020 (1.005-1.025) Urine Protein Negative (Neg-Trace) mg/dL Urine Glucose (UA) 250 H (Negative) mg/dL Urine Ketones Negative (Negative) mg/dL Urine Blood Trace H (Negative) Urine Nitrite Negative (Negative) Ur Leukocyte Esterase Moderate (2+) H (Negative) Urine RBC 0-2 (0-2) /HPF Urine WBC >50 H (0-5) /HPF Ur Squamous Epith Cells >20 (0-2) /HPF Urine Bacteria 1+ (None Seen) Hyaline Casts 0-2 (0-2) /LPF Influenza Type A (PCR) NEGATIVE (Negative) Influenza Type B (PCR) NEGATIVE (Negative) RSV RNA Qual (PCR) NEGATIVE (Negative) SARS-CoV-2 RNA (RT-PCR) NEGATIVE (Negative) Tests considered The following testing was considered but not selected: A CT of the abdomen/pelvis was considered however, the patient's current clinical presentation did not warrant it. I discussed this with the patient who verbalized agreement and understanding. Prescription Management I considered prescription management with: Antibiotic (patient prescribed an antibiotic for UTI) Chronic Conditions Patient?s care impacted by: Diabetes Discharge Plan Discharge Clinical Impression: UTI (urinary tract infection) Patient Disposition: Home, Self-Care Instructions: Urinary Tract Infection in Women (DC) Additional Instructions: Follow up with your primary care provider. Return to the emergency department immediately if your symptoms worsen or if you develop any dizziness, shortness of breath, difficulty breathing, chest pain, blurry vision, loss of vision, nausea, vomiting, abdominal pain, fever, chills, back pain, or any other complaints. Prescriptions: New cefuroxime axetil 250 mg tablet 250 mg PO BID 7 Days Qty: 14 0RF fluconazole 150 mg tablet 150 mg PO Q3D Qty: 2 0RF No Action (DME) blood-glucose meter [OneTouch Verio Flex Start] Kit See Rx Instructions .Route Qty: 1 0RF Rx Instructions: As directed amitriptyline 25 mg Tablet 25 mg PO BEDTIME duloxetine 60 mg capsule,delayed release(DR/EC) 120 mg PO DAILY mirtazapine 15 mg tablet 7.5 - 15 mg PO BEDTIME PRN (Reason: insomnia) Jardiance 10 mg tablet 10 mg PO DAILY insulin glargine [Lantus Solostar U-100 Insulin] 100 unit/mL (3 mL) insulin pen 10 unit subcut BEDTIME prazosin 2 mg capsule 2 mg PO BID (DME) pen needle, diabetic [BD Ultra-Fine Short Pen Needle] 31 gauge x 5/16 needle See Rx Instructions .ROUTE DAILY Qty: 1200 Rx Instructions: As directed alcohol swabs [BD Alcohol Swabs] Pads, Medicated topical (DME) blood-glucose meter [OneTouch Verio Flex meter] Misc See Rx Instructions .ROUTE .MEDSUPPLY Qty: 1 Rx Instructions: As directed Referrals: [facility] [place] Medicine [Provider Group] (Call to establish and follow up with a primary care provider. If you already have a primary care provider, please follow up with them.) [facility] [place] [facility] [Provider Group] (Call to establish and follow up with a primary care provider. If you already have a primary care provider, please follow up with them.) [facility] [Provider Group] (Call to establish and follow up with a primary care provider. If you already have a primary care provider, please follow up with them.) Stand Alone Forms: Work/School Release Interventions: ED Discharge Assessment Last Done: 02/05/24 17:09 Discharge Date/Time: 02/05/24 17:09 Print Language: Tajik
[2024-02-05 11:57] LABS: MANUAL DIFF FLAG NO
[2024-02-05 12:02] LABS: Basophils Percent Auto 0.7 % (0-2); Eosinophils Absolute Auto 0.2 X10*3/uL (0.0-0.4); Eosinophils Percent Auto 2.6 % (0-4); Hematocrit 44.1 % (37.0-47.0); Hemoglobin 15.3 g/dl (12.0-16.0); Imm Gran Abs Auto 0.01 X10*3/uL (0.00-0.03); Imm Gran Pct Auto 0.2 % (0.0-0.4); Lymphocytes Absolute Auto 2.1 X10*3/uL (1.2-4.9); Lymphocytes Percent Auto 36.3 % (20-40); Mean Corpuscular HGB Conc 34.7 g/dl (31.0-35.0); Mean Corpuscular Hemoglobin 31.7 pg (27.0-33.0); Mean Corpuscular Volume 91.3 fL (80.0-98.0); Mean Platelet Volume 9.3 fL (9.4-12.3); Monocytes Absolute Auto 0.3 X10*3/uL (0.1-1.2); Monocytes Percent Auto 4.9 % (2-11); Neutrophils Absolute Auto 3.2 x10*3/uL (2.0-8.3); Neutrophils Percent Auto 55.3 % (45-73); Platelet Count 329 X10*3/uL (160-400); Red Blood Count 4.83 X10*6/uL (4.20-5.50); Red Cell Distribution Width 12.8 % (11.0-16.0); White Blood Count 5.8 X10*3/uL (4.8-10.8)
[2024-02-05 12:13] LABS: Alanine Aminotransferase 23 U/L (0-31); Albumin Level 4.2 g/dL (3.5-5.0); Alkaline Phosphatase 108 U/L (39-117); Anion Gap 8 (12-20); Aspartate Amino Transferase 15 U/L (5-31); Bilirubin Total 0.3 mg/dL (0.0-1.0); Blood Urea Nitrogen 13 mg/dL (9-16); Calcium 9.5 mg/dL (8.4-10.2); Carbon Dioxide 27 mmol/L (22-29); Chloride 106 mmol/L (96-108); Creatinine Clr Calc Pharmacy 83.3; Estimated Glomerular Filt Rate > 60; Glucose Random 161 mg/dL (60-115); Potassium 4.1 mmol/L (3.3-5.1); Sodium 137 mmol/L (135-145); Total Protein 7.4 g/dL (6.5-8.0)
[2024-02-05 12:54] LABS: Influenza A PCR NEGATIVE (Negative); Influenza B PCR NEGATIVE (Negative); Resp Syncy Virus RNA Qual PCR NEGATIVE (Negative); SARS COV2 PCR INHOUSE NEGATIVE (Negative)
[2024-02-05 16:03] LABS: Appearance Urine Cloudy; Color Urine Yellow; Glucose Urine UA 250 mg/dL (Negative); Leukocyte Esterase Urine Moderate (2+) (Negative); Nitrite Urine Negative (Negative); PH 5.5 (5.0-9.0); UMIC TRIGGER UACC YES; Urine Blood Trace (Negative); Urine Ketones Negative (Negative); Urine Protein Negative (Neg-Trace)
[2024-02-05 16:05] LABS: Bacteria Urine 1+ (None Seen); Hyaline Casts Urine 0-2 /LPF (0-2); RBC Urine 0-2 /HPF (0-2); Squamous Epithelial Cell Urine >20 /HPF (0-2); UACC Culture Trigger YES; WBC Urine >50 /HPF (0-5)
[2024-02-05 16:19] VITALS: BP 142/82; PULSE 85; RESP 17; TEMP 36.8; O2SAT 99
== END 2024-02-05 17:09 | disposition home or self-care (01) ==
PROVIDERS: Physician Assistant Medical; Emergency Provider Emergency Medicine Emergency Medical Services
DX: N39.0 Urinary tract infection, site not specified (principal); E11.9 Type 2 diabetes mellitus without complications; Z11.52 Encounter for screening for COVID-19; Z20.828 Contact with and (suspected) exposure to other viral communicable diseases
CPT/HCPCS: 0241U; 80053; 81001; 83735; 85025; 87086; 99283

== ENCOUNTER 2024-04-28 09:35 | Outpatient (AMB) | payer OTHER, SELFPAY ==
--- NOTE | 2024-04-28 09:46 | A.OFFPC_ITS ---
Vital Signs 04/28/24 09:47 Height 5 ft 9 in Weight 172 lb 2 oz BMI 25.4 BP 126/78 Blood Pressure Location Rt brachial Position Sitting Respiration 14 Pulse 80 Pulse Source Pulse Oximeter Temp 97 F Temp Source Temporal Artery Scan Pulse Oximetry (%) 99 Oxygen Delivery Method Room Air Intake Visit Reasons: Urinary tract infection Intake Note: Patient states that she was recently on antibiotics and is experiencing vaginal itch, she believes her UTI hasnt gone away either. Rv Service Technician Required: No Accompanied by: Self / Same As Patient Allergies bee pollen [BEE STINGS] Allergy (Severe, Verified 04/28/24 10:13) ANAPHYLAXIS tramadol Allergy (Severe, Verified 04/28/24 10:13) mental confusion cinnamon [CINNAMON] Allergy (Intermediate, Verified 04/28/24 10:13) HIVES trazodone [TRAZODONE] Allergy (Intermediate, Verified 04/28/24 10:13) PER H&P, ? Medication List - Last Reconciled 04/28/24 by KAMERON Hirsch- alcohol swabs (BD Alcohol Swabs) pad topical amitriptyline 25 mg PO BEDTIME blood-glucose meter (OneTouch Verio Flex Meter) As directed blood-glucose meter (OneTouch Verio Flex Start kit) As directed duloxetine 120 mg PO DAILY empagliflozin (Jardiance) 10 mg PO DAILY insulin glargine (Lantus Solostar U-100 Insulin) 10 units subcut BEDTIME mirtazapine 7.5 - 15 mg PO BEDTIME PRN pen needle, diabetic (BD Ultra-Fine Short Pen Needle) As directed prazosin 2 mg PO BID Tobacco use date assessed: 04/28/24 Dental Screening Dental Screen Date: 04/28/24 Did you have a dental visit in the last 12 months?: Yes Did you have a dental problem in the last 6 months where you did not have access to dental care?: No Was dental information given to patient?: Patient has dentist HPI HPI Comments History of Present Illness Details Here today with several complaints. States she is having urinary frequency, vaginal itching, abdominal bloating and cramping, constipation, cramps in her abdomen and in her lower extremities in the setting of stopping her insulin and Jardiance 1 month ago. She states that she has been under a lot of stress, uptic in her depression as she has going through a divorce. Wants STD screen. She is currently working with her counselor. Admits to taking all of her antidepressants as directed. She fell out of care with endocrinology and Mr. Last endocrinology appointment. Her hemoglobin A1c was done in the office today and is 9.6%. When she was on the Jardiance she has had at least 2 infections to date. She self-treated the vaginal itching at home with [id number] use medications with very minimal improvement. [facility] Medical History Colon cancer screening Screening mammogram for breast cancer Acute abdomen Hyperglycemia Over weight Chronic pain of left lower extremity DDD (degenerative disc disease) Back pain Bilateral carpal tunnel syndrome Anxiety Depression Surgical History History of umbilical hernia repair History of back surgery History of tonsillectomy History of tubal ligation History of wisdom tooth extraction History of neck surgery Family History Father Liver failure Mother No problems noted. 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 Vahid Mayberry, Maren Harris, Chema Singh and colleagues, with an educational torito from [employer]. Review of Systems Const All systems reviewed & are unremarkable except as noted in HPI and below Physical exam (Primary Care) Vital Signs: Last Vital Signs Temp 97 F 04/28/24 09:47 Pulse 80 04/28/24 09:47 Resp 14 04/28/24 09:47 BP 126/78 04/28/24 09:47 Pulse Ox 99 04/28/24 09:47 Oxygen Delivery Method Room Air 04/28/24 09:47 BMI result Body Mass Index 25.4 Tobacco/Smoking Status: Tobacco use Status Tobacco use date assessed 04/28/24 04/28/24 10:01 Patient Tobacco Use Status Former Tobacco user 04/28/24 10:01 e-Cigarette/Vaping Use Never Used 04/28/24 09:46 Thrive Assessment: Date of Thrive Assessment Date Thrive assessed 01/09/23 04/28/24 09:46 Const Other: awake alert no acute distress scleras nonicteric MMM RRR LS CTAB Abd round, protuberant, visible veins, normoactive bowel sounds x4, no rebound tenderness or peritoneal signs, no CVA tenderness bilat Results AMB Urinalysis Dipstick UR Leukocytes Negative Last Edit by Lissett Tinoco [facility] on 04/28/24 10:15 UR Nitrite Negative Last Edit by Lissett Tinoco [facility] on 04/28/24 10:15 UR Urobilinogen Normal Last Edit by Lissett Tinoco [facility] on 04/28/24 10:15 UR Protein Negative Last Edit by Lissett Tinoco [facility] on 04/28/24 10:15 UR Ph 6.0 Last Edit by Lissett Tinoco [facility] on 04/28/24 10:15 UR Blood Negative Last Edit by Lissett Tinoco [facility] on 04/28/24 10:15 UR Specific [place] 1.020 Last Edit by Lissett Tinoco [facility] on 04/28/24 10 :15 UR Ketone Negative Last Edit by Lissett Tinoco [facility] on 04/28/24 10:15 UR Bilirubin Negative Last Edit by Lissett Tinoco [facility] on 04/28/24 10:15 UR Glucose 1000 Last Edit by Lissett Tinoco [facility] on 04/28/24 10:15 AMB Hemoglobin A1c AMB Hemoglobin A1c 9.6 % Last Edit by AKHIL Hirsch on 04/28/24 10:43 Results Reviewed Results Reviewed: Laboratory Last Values Urine pH (Clinic) 6.0 04/28/24 10:09 Specific [place] (Clinic) 1.020 04/28/24 10:09 Ur Protein (Clinic) Negative 04/28/24 10:09 Ur Ketones (Clinic) Negative 04/28/24 10:09 Urine Blood (Clinic) Negative 04/28/24 10:09 Urine Nitrite Negative 04/28/24 10:09 Urine Bilirubin (Clinic) Negative 04/28/24 10:09 Urobilinogen (Clinic) Normal 04/28/24 10:09 Leukocyte Esterase (Clinic) Negative 04/28/24 10:09 Urine Glucose (Clinic) 1000 04/28/24 10:09 Assessment and Plan Assessment & Plan (1) Abdominal bloating: Comment: Check abdominal ultrasound. Code(s): R14.0 - Abdominal distension (gaseous) (2) Insulin use (long-term) in type 2 diabetes: Code(s): E11.9 - Type 2 diabetes mellitus without complications; Z79.4 - jail (current) use of insulin Qualifiers: Diabetes mellitus complication status: with hyperglycemia Qualified Code(s): E11.65 - Type 2 diabetes mellitus with hyperglycemia; Z79.4 - joint terminal attack controller (current) use of insulin (3) Diabetes mellitus type 2 with complications: Comment: Hemoglobin A1c 9.6% today. The plan will be to discontinue her Jardiance due to recurrent infections. Increase her insulin Lantus from 16 units daily to 20 units daily and restart metformin ER 1000 mg p.o. b.i.d.. Code(s): E11.8 - Type 2 diabetes mellitus with unspecified complications (4) MDD (major depressive disorder), recurrent episode: Comment: Active with outside counselor in prescriber. Taking medications as directed. Code(s): F33.9 - Major depressive disorder, recurrent, unspecified Qualifiers: Major depression episode severity: moderate Qualified Code(s): F33.1 - Major depressive disorder, recurrent, moderate (5) Genitourinary infection, candidal: Comment: Treat with fluconazole x2 doses. Discontinue the Jardiance. Code(s): B37.49 - Other urogenital candidiasis (6) Possible exposure to STD: Comment: As she is going through divorce she asked for a referral to certified technician specialist for an STD screen and workup. Referral placed today. Code(s): Z20.2 - Contact with and (suspected) exposure to infections with a predominantly sexual mode of transmission Plan This note is constructed using voice recognition software. While every effort has been made to ensure accuracy in feed project engineer, still errors may have been included Sometimes, these errors may affect the content or meaning of the given sentence . Total time spent caring for the patient today was 60 minutes. This includes time spent before the visit reviewing the chart, time spent during the visit, and time spent after the visit on documentation Orders: Orders AMB Urinalysis Dipstick Today Z13.9 - Encounter for screening, unspecified Urine Culture Today E11.8 - Type 2 diabetes mellitus with unspecified complications, E11.9 - Type 2 diabetes mellitus without complications, Z79.4 - jail (current) use of insulin US abdomen comp w elastography Today R14.0 - Abdominal distension (gaseous) Referrals RV TECHNICIAN Referral Z20.2 - Contact with and (suspected) exposure to infections with a predominantly sexual mode of transmission Medications: New fluconazole take 1 tab day 1, repeat second dose on day 3 150 mg PO Q3D 2 tabs 0RF metformin ER 1,000 mg (2 x 500 mg) PO BID 120 tabs 3RF Changed From insulin glargine (Lantus Solostar U-100 Insulin) 10 units subcut BEDTIME To insulin glargine (Lantus Solostar U-100 Insulin) 20 units subcut BEDTIME Patient Instructions: Urine today did not indicate any gross infection. However I will send the urine out for culture and treat as appropriate. Please be sure to take all of your medications as directed. Return to the office in 2-3 weeks to follow up on your diabetes control as well as discuss her ultrasound results. Return to the office sooner as needed. Coding Level of Care Code Est Pt Level 5 (01059) Diagnoses Abdominal bloating R14.0 Type 2 diabetes mellitus with hyperglycemia, with long-term current use of insulin E11.65; Z79.4 Diabetes mellitus complication status: with hyperglycemia Diabetes mellitus type 2 with complications E11.8 Moderate episode of recurrent major depressive disorder F33.1 Major depression episode severity: moderate Genitourinary infection, candidal B37.49 Possible exposure to STD Z20.2
[2024-04-28 09:47] VITALS: BP 126/78; PULSE 80; RESP 14; TEMP 36.1; O2SAT 99; BMI 25.4
== END 2024-04-28 10:37 | disposition home or self-care (01) ==
PROVIDERS: Visit Provider Nurse Practitioner Family
DX: E11.65 Type 2 diabetes mellitus with hyperglycemia (principal); Z79.4 Long term (current) use of insulin; E11.8 Type 2 diabetes mellitus with unspecified complications; F33.1 Major depressive disorder, recurrent, moderate; R14.0 Abdominal distension (gaseous); B37.49 Other urogenital candidiasis; Z20.2 Contact with and (suspected) exposure to infections with a predominantly sexual mode of transmission
CPT/HCPCS: 81002; 83036; 99215; 99417

== ENCOUNTER 2024-04-28 10:22 | Outpatient (REF) | payer OTHER, SELFPAY | END 2024-04-28 10:23 | disposition home or self-care (01) | LOC: HO.LAB 10:22 | PROVIDERS: Visit Provider Nurse Practitioner Family | DX: Z13.9 Encounter for screening, unspecified (principal) | CPT/HCPCS: 87086 ==

== ENCOUNTER 2024-05-31 14:27 | Outpatient (AMB) | payer OTHER, SELFPAY ==
[2024-05-31 14:40] VITALS: BP 118/70; BMI 25.0
--- NOTE | 2024-05-31 14:40 | MHC.OFFVIS ---
Vital Signs 05/31/24 14:40 Height 5 ft 9 in Weight 169 lb BMI 25.0 BP 118/70 Intake Visit Reasons: New patient Exposure to STD Hospital Cleaning Specialist Required: No Hospital Cleaning Specialist Services: Hospital Cleaning Specialist Present Information Interpreted: clinical only Motorboat Mechanic Inboard/Outboard: Motorboat Mechanic Inboard/Outboard Present Allergies bee pollen [BEE STINGS] Allergy (Severe, Verified 05/31/24 14:41) ANAPHYLAXIS tramadol Allergy (Severe, Verified 05/31/24 14:41) mental confusion cinnamon [CINNAMON] Allergy (Intermediate, Verified 05/31/24 14:41) HIVES trazodone [TRAZODONE] Allergy (Intermediate, Verified 05/31/24 14:41) PER H&P, ? Medication List - Last Reconciled 05/31/24 by Azeb Manzo CNM alcohol swabs (BD Alcohol Swabs) pad topical amitriptyline 25 mg PO BEDTIME blood-glucose meter (OneTouch Verio Flex Meter) As directed blood-glucose meter (OneTouch Verio Flex Start kit) As directed duloxetine 120 mg PO DAILY empagliflozin (Jardiance) 25 mg PO QAM fluconazole 150 mg PO Q3D 2 doses insulin glargine (Lantus Solostar U-100 Insulin) 20 units subcut BEDTIME mirtazapine 7.5 - 15 mg PO BEDTIME PRN pen needle, diabetic (BD Ultra-Fine Short Pen Needle) As directed prazosin 2 mg PO BID Post menopausal: Yes HPI HPI New patient Exposure to STD: Details: Patient here because she thinks she has a yeast infection she has had vaginal itching she has had various vaginal infections since she got diagnosed with diabetes this past year when it was discovered that her blood sugar was 800. She has gone often on different medications and there were challenges with prescriptions being sent to her pharmacy she has just restarted on Jardiance and she is on insulin and another medication. She says her blood sugars are still elevated and it has a work in progress to get them under control and she is working on it her appetite is not good and she says she has lost weight since she was diagnosed as a diabetic. She also does shave and has a boil down near her rectum where she has shaved and she was not sure if that was a result shaving or not. She has not generally sexually active with her but they did have sex a few months ago so she would like to get checked for STDs well she is having a vaginal exam. She says her last Pap smear was 2020 and she has never ever had an abnormal 1.. [facility] Medical History (Updated 05/31/24 @ 15:58 by Azeb Manzo CNM) Diabetes mellitus Diabetes mellitus type 2 with complications Colon cancer screening Screening mammogram for breast cancer Acute abdomen Hyperglycemia Over weight Chronic pain of left lower extremity DDD (degenerative disc disease) Back pain Bilateral carpal tunnel syndrome Anxiety Depression Surgical History History of umbilical hernia repair History of back surgery History of tonsillectomy History of tubal ligation History of wisdom tooth extraction History of neck surgery Family History Father Liver failure Mother No problems noted. 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 It encompasses a hair follicle so it is most likely a folliculitis resulting from shaving as it is where the patient has shaved. Vaginal mucosa is atrophic her cervix is multiparous pink smooth healthy appearing mucus no evidence of copious yeast discharge however the labial mucosa are somewhat reddened and inflamed consistent with possible mild yeast. She says she has not very itchy right now except right around her clitoris no obvious inflammation visible but that does not mean it is not itchy. Female genitals images: 1. Folliculitis versus boil Results Reviewed Results Reviewed: I reviewed many of her primary Care Internal Medicine notes... Assessment & Plan Assessment & Plan (1) Possible exposure to STD: Comment: As she is going through divorce she asked for a referral to ball rolling machine operator for an STD screen and workup. Referral placed today. Code(s): Z20.2 - Contact with and (suspected) exposure to infections with a predominantly sexual mode of transmission Category: Medical (2) Genitourinary infection, candidal: Comment: Treat with fluconazole x2 doses. Discontinue the Jardiance.; 05/31/2024 ( midwifery note--in reviewing this with the patient she states she was told by someone in the endocrinology office to restart the Jardiance again ( mo'b) Code(s): B37.49 - Other urogenital candidiasis Category: Medical (3) Diabetes mellitus type 2 with complications: Comment: Hemoglobin A1c 9.6% today. The plan will be to discontinue her Jardiance due to recurrent infections. Increase her insulin Lantus from 16 units daily to 20 units daily and restart metformin ER 1000 mg p.o. b.i.d.. ( 05/31/24-midwifery note patient says she was told to restart the Jardiance-mo'b) Code(s): E11.8 - Type 2 diabetes mellitus with unspecified complications Category: Medical (4) Insulin use (long-term) in type 2 diabetes: Code(s): E11.9 - Type 2 diabetes mellitus without complications; Z79.4 - skilled nursing (current) use of insulin Category: Medical Qualifiers: Diabetes mellitus complication status: with hyperglycemia Qualified Code(s): E11.65 - Type 2 diabetes mellitus with hyperglycemia; Z79.4 - skilled nursing (current) use of insulin (5) Folliculitis: Code(s): L73.9 - Follicular disorder, unspecified Category: Medical Plan Discussed her symptoms in detail. Cervical vaginal swabs taken for gonorrhea chlamydia trichomoniasis Gardnerella and Selina. Labial mucosa slightly reddened consistent possibly with mild yeast no obvious abnormal discharge discharge more. Could be consistent with either mild Selina or atrophic changes or combination of both she does have a boil in stretch vadim near her rectum that is also where she shaved and it is a mild folliculitis that appears to be healing, in that it is red but there has no surrounding erythema or hardness evident my recommendation is to use gentle warm soaks she tends to let the warm water run over in the shower and that is fine and other than that to leave it alone and use her cotton underwear which she does and work hard to keep her diabetes under good control. She already has prescriptions for fluconazole I do not think she needs to use it at this could current time based on her symptoms, but I ordered Monistat cream that she can use for it is soothing effect both internally and externally as needed. Discussed the challenges of trying to have a new diagnosis of diabetes and manage once blood sugars. And the into relationship between elevated blood sugars and yeast infections as well as antibiotics and yeast infections the folliculitis/boil does not warrant antibiotic use it this time. Orders: Orders CT NG by PCR Today N89.8 - Other specified noninflammatory disorders of vagina Bacterial Vaginosis Panel Today N89.8 - Other specified noninflammatory disorders of vagina Medications: New miconazole nitrate 2% (Miconazole-7) 1 appful vaginal BEDTIME 7 days 45 grams 2RF Coding Level of Care Code New Pt Level 3 (20261) Diagnoses Possible exposure to STD Z20.2 Genitourinary infection, candidal B37.49 Diabetes mellitus type 2 with complications E11.8 Type 2 diabetes mellitus with hyperglycemia, with long-term current use of insulin E11.65; Z79.4 Diabetes mellitus complication status: with hyperglycemia Folliculitis L73.9
== END 2024-05-31 15:27 | disposition home or self-care (01) ==
LOC: HO.HWSM 14:28
PROVIDERS: PCP Nurse Practitioner Family; Visit Provider Advanced Practice Midwife
DX: Z20.2 Contact with and (suspected) exposure to infections with a predominantly sexual mode of transmission (principal); B37.49 Other urogenital candidiasis; E11.8 Type 2 diabetes mellitus with unspecified complications; E11.65 Type 2 diabetes mellitus with hyperglycemia; Z79.4 Long term (current) use of insulin; L73.9 Follicular disorder, unspecified
CPT/HCPCS: 99203

== ENCOUNTER 2024-05-31 14:27 | Outpatient (REF) | payer OTHER, SELFPAY ==
[2024-06-01 02:25] LABS: CT PCR NOT DETECTED (Not Detect.); NG PCR NOT DETECTED (Not Detect.)
[2024-06-01 08:59] LABS: Bacterial Vaginosis PCR NEGATIVE (Negative); Candida Group PCR NOT DETECTED (Not Detect); Candida glab krusei PCR NOT DETECTED (Not Detect); Trichomonas vaginalis PCR DETECTED (Not Detect)
== END 2024-05-31 14:28 | disposition home or self-care (01) ==
LOC: HO.LAB 14:27
PROVIDERS: PCP Nurse Practitioner Family; Visit Provider Advanced Practice Midwife
DX: N89.8 Other specified noninflammatory disorders of vagina (principal); B37.49 Other urogenital candidiasis; E11.65 Type 2 diabetes mellitus with hyperglycemia; L73.9 Follicular disorder, unspecified; Z20.2 Contact with and (suspected) exposure to infections with a predominantly sexual mode of transmission; Z79.4 Long term (current) use of insulin
CPT/HCPCS: 0352U; 87491; 87591; 99202

== ENCOUNTER 2024-07-04 11:26 | Outpatient (REF) | payer OTHER, SELFPAY ==
[2024-07-05 04:21] LABS: CT PCR NOT DETECTED (Not Detect.); NG PCR NOT DETECTED (Not Detect.)
[2024-07-05 08:46] LABS: Bacterial Vaginosis PCR NEGATIVE (Negative); Candida Group PCR DETECTED (Not Detect); Candida glab krusei PCR NOT DETECTED (Not Detect); Trichomonas vaginalis PCR NOT DETECTED (Not Detect)
== END 2024-07-04 11:27 | disposition home or self-care (01) ==
LOC: HO.LAB 11:26
PROVIDERS: PCP Nurse Practitioner Family; Visit Provider Advanced Practice Midwife
DX: A59.9 Trichomoniasis, unspecified (principal); N89.8 Other specified noninflammatory disorders of vagina; Z20.2 Contact with and (suspected) exposure to infections with a predominantly sexual mode of transmission
CPT/HCPCS: 0352U; 87491; 87591; 99212

== ENCOUNTER 2024-07-04 11:26 | Outpatient (AMB) | payer OTHER, SELFPAY ==
[2024-07-04 11:34] VITALS: BP 110/70; BMI 25.1
--- NOTE | 2024-07-04 11:34 | A.OFFVIS_ITS ---
Vital Signs 07/04/24 11:34 Height 5 ft 9 in Weight 170 lb BMI 25.1 BP 110/70 Intake Visit Reasons: HAKEEM Information Interpreted: clinical only Forensic Toxicologist: Forensic Toxicologist Present Allergies bee pollen [BEE STINGS] Allergy (Severe, Verified 07/04/24 11:35) ANAPHYLAXIS tramadol Allergy (Severe, Verified 07/04/24 11:35) mental confusion cinnamon [CINNAMON] Allergy (Intermediate, Verified 07/04/24 11:35) HIVES trazodone [TRAZODONE] Allergy (Intermediate, Verified 07/04/24 11:35) PER H&P, ? Post menopausal: Yes HPI HPI HAKEEM: Details: For test of cure for the trichomoniasis. She says she felt so much better after taking the treatment she was so upset at is having denied being with somebody else in between joining the break-up and exposing her to the trich she says she went to the emergency room and got treated. She says they gave him many pills and shot as well and said that they were treating him for everything just in case. She has not been sexually active with him since but feels the discharge is so much better and she intends to use condoms they are talking about getting back together but have talked about this. I offered testing blood work for STIs and she does not know if she had it or not but she would be interested. On questioning she says her diabetes is getting better control with the Jardiance and she is not going through peaks and valleys and is more level [facility] Medical History Diabetes mellitus Diabetes mellitus type 2 with complications Colon cancer screening Screening mammogram for breast cancer Acute abdomen Hyperglycemia Over weight Chronic pain of left lower extremity DDD (degenerative disc disease) Back pain Bilateral carpal tunnel syndrome Anxiety Depression Surgical History History of umbilical hernia repair History of back surgery History of tonsillectomy History of tubal ligation History of wisdom tooth extraction History of neck surgery Family History Father Liver failure Mother No problems noted. 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[employer] Cognitive needs: Yes (cane) Hearing needs: No Vision needs: No Female Reproductive History Menstrual Age of Menarche: 14 Duration of menses: 3-5 days control method: permanent sterilization Total pregnancies: 5 Full term: 5 Number of Living Children: 5 Date of last pap smear: 12/27/19 (neg.) History of abnormal pap smear: Yes (unsure date) Physical Exam Vital Signs: Last Vital Signs BP 110/70 07/04/24 11:34 BMI result Body Mass Index 25.1 External Female Exam: normal external appearance and normal appearance of the urethra Speculum Exam - Vagina: normal appearance of the vagina and normal vaginal discharge Speculum Exam - Cervix: normal appearance of the cervix and Cervical os closed Assessment & Plan Assessment & Plan (1) Possible exposure to STD: Comment: As she is going through divorce she asked for a referral to remote sensing program manager for an STD screen and workup. Referral placed today./test of cure for trich done 07/04/24 orders placed for other blood work that she can do at her discretion. Code(s): Z20.2 - Contact with and (suspected) exposure to infections with a predominantly sexual mode of transmission Category: Medical (2) Trichomoniasis: Comment: She and partner need treatment. Rx sent./test of cure done 07/04/2024. Code(s): A59.9 - Trichomoniasis, unspecified Category: Medical Plan Reviewed testing for STIs she can get done when she wishes reviewed that we do not normally order testing for HSV as most people have been exposed to a version of the virus via cold sores and we only typically offer testing if there s pecific symptoms which she does not have this time. Reviewed the challenges being diagnosed an STD which she relayed in detail. Reminded that she did have some sense that there was something often that needed did not checked and she was aware.. Continue her good self-care regarding her diabetes. Orders: Orders Hepatitis C Antibody Today A59.9 - Trichomoniasis, unspecified, Z20.2 - Contact with and (suspected) exposure to infections with a predominantly sexual mode of transmission CT NG by PCR Today N89.8 - Other specified noninflammatory disorders of vagina, Z20.2 - Contact with and (suspected) exposure to infections with a predominantly sexual mode of transmission Bacterial Vaginosis Panel Today N89.8 - Other specified noninflammatory disorders of vagina Hepatitis B Surface Antigen Today A59.9 - Trichomoniasis, unspecified, Z20.2 - Contact with and (suspected) exposure to infections with a predominantly sexual mode of transmission Syphilis Screen Today A59.9 - Trichomoniasis, unspecified, Z20.2 - Contact with and (suspected) exposure to infections with a predominantly sexual mode of transmission Coding Level of Care Code Est Pt Level 3 (53904) Diagnoses Possible exposure to STD Z20.2 Trichomoniasis A59.9
== END 2024-07-04 12:59 | disposition home or self-care (01) ==
LOC: HO.HWSM 11:26
PROVIDERS: PCP Nurse Practitioner Family; Visit Provider Advanced Practice Midwife
DX: Z20.2 Contact with and (suspected) exposure to infections with a predominantly sexual mode of transmission (principal); A59.9 Trichomoniasis, unspecified
CPT/HCPCS: 99213

== ENCOUNTER 2025-02-02 10:01 | Outpatient (AMB) | payer OTHER, SELFPAY ==
--- NOTE | 2025-02-02 10:03 | A.OFFPC_ITS ---
Vital Signs 3 02/02/25 10:09 Height 5 ft 9 in Weight 166 lb 4 oz BMI 24.5 BP 98/66 Blood Pressure Location Lt brachial Position Sitting Respiration 12 Pulse 78 Pulse Source Pulse Oximeter Temp 96.8 F Temp Source Oral Pulse Oximetry (%) 96 Oxygen Delivery Method Room Air Intake Visit Reasons: re establish care Intake Note: to re establish care, patient is still recovering from pneumnoia Reo Asset Manager Required: No Allergies bee pollen [BEE STINGS] Allergy (Severe, Verified 02/02/25 10:16) ANAPHYLAXIS tramadol Allergy (Severe, Verified 02/02/25 10:16) mental confusion cinnamon [CINNAMON] Allergy (Intermediate, Verified 02/02/25 10:16) HIVES trazodone [TRAZODONE] Allergy (Intermediate, Verified 02/02/25 10:16) PER H&P, ? Medication List - Last Reconciled 02/02/25 by ZACHARY HirschP-BC alcohol swabs (BD Alcohol Swabs) pad topical amitriptyline 25 mg PO BEDTIME blood-glucose meter (OneTouch Verio Flex Meter) As directed blood-glucose meter (OneTouch Verio Flex Start kit) As directed duloxetine 120 mg PO DAILY insulin glargine (Lantus Solostar U-100 Insulin) 20 units subcut BEDTIME mirtazapine 7.5 mg PO BEDTIME pen needle, diabetic (BD Ultra-Fine Short Pen Needle) As directed Tobacco use date assessed: 02/02/25 Dental Screening Dental Screen Date: 02/02/25 Did you have a dental visit in the last 12 months?: No Did you have a dental problem in the last 6 months where you did not have access to dental care?: No Was dental information given to patient?: Patient has dentist HPI HPI Comments 2 History of Present Illness0 Details 55-year-old female with DM2 , generalize d anxiety disorder MDD, bilat carpal tunnel syndrome, marijuana use, family hx of colon ca Status post umbilical hernia repair, back surgery, tonsillectomy, tubal ligation, neck surgery, wisdom tooth extraction Health maintenance Pap smear 12/19/2019 Colonoscopy cannot tolerate prep- + family hx of colon ca; cologaurd ordered Mammogram has never had one, ordered today Declined flu Tdap 2021 DEXA Specialists: Optho Podiatry Endo History of Present Illness - The patient is a 55-year-old female pr esenting to reestablish care after a lapse in medical follow-up for her chronic conditions and for a CPE. She has a history of Type 2 Diabetes Mellitus with an elevated Hemoglobin A1c level of 9.1, indicating poor control. On insulin, active w/ Endo at [facility]. Recently, she experienced pneumonia and influenza, requiring hospitalization, but left due to prolonged wait times. States she is feeling better now. She uses marijuana to manage her sciatic nerve pain, acknowledging this might affect her lung health. She has lost 17 pounds in two weeks due to her diabetes complications & acute illness. Reports persistent sciatic nerve pain, choosing to manage it through marijuana rather than prescription pain medication. She presents with a painful, infected ingrown toenail, worsened by her diabetic condition, and notes that her diabetic foot condition has been ongoing for several months without adequate management. Requesting referral to new podiatry - old one . She reports past difficulty with colonoscopy preparation, resulting in inadequate cancer screening. She requires referrals for diabetic eye examinations and other routine screenings as part of her ongoing diabetes management and preventative care. Review of Systems - Neurological: Reports seeing double re lated to her diabetes control. - Musculoskeletal: Reports significant s ciatic nerve pain. - Respiratory: Reports past pneumonia an d influenza, with ongoing respiratory issues. - Dermatological: Reports ingrown toenai l with redness and a sensation of throbbing. - Gastrointestinal: Reports failed colon oscopy prep and difficulty with Gatorade prep solution. - Endocrine: Reports recent weight loss and high glucose levels. Physical Exam General: Well developed, well nourished, in no acute distress. Appears older than stated age. Head: Normocephalic, atraumatic. Eyes: Pupils are equal, round and reactive to light and accommodation. Conjunctivae are clear.. Ears: TMs clear AU, EACS WNL Nose: Patent, without discharge. Neck: Supple, no adenopathy or thyromegaly. Breast: Edu on SBE Lungs: Forced exp wheeze, no distress Heart: Regular rate and rhythm. No murmurs, click, rubs or gallops are noted. Abdomen: Bowel sounds present in all quadrants. The abdomen is soft, nontender, with no masses or organomegaly noted. No hernias are noted. : Deferred. Reviewed recommendations for routine RECONCILER Pulses: Peripheral pulses are equal and palpable bilaterally - decreased. Extremities: No clubbing, cyanosis nor edema is noted. See pic below of feet. Hairless. Neurologic: Gait and station normal. Cranial Nerves 2-12 intact. Motor strength grossly symmetrical and intact. No sensory loss. Balance normal. Skin: No rashes, ulcers, or lesions noted. Turgor is good. Skin color is good. Psych: Normal eye contact, affect and mood appropriate, and normal interactions. Patient is alert and appropriate to context. Results - Labs: Hemoglobin A1c at 9.1 Discussion Notes During the visit, I emphasized the importance of addressing her uncontrolled diabetes, explaining that improvement of her Hemoglobin A1c level is crucial for her overall health, especially considering her additional health issues. I recommended a continuous stay in care to monitor her chronic conditions efficiently. We discussed the diabetes management plan and the necessity of specialized tests such as a diabetic foot exam and a comprehensive eye exam. I highlighted the benefits of completing cancer screenings, specifically recommending the use of a Cologuard test as a convenient alternative to assess colon cancer risks. Additionally, focusing on her respiratory health, I advised reducing marijuana use to mitigate any further risk to her lung health. We also talked over the importance of regular mental health assessments to manage her diagnosed major depressive disorder. The patient expressed understanding and accepted the proposed plan for follow-ups and interventions for her assessed conditions. Assessment and Plan 1. Type 2 Diabetes Mellitus, uncontrolle d: The patient displays an elevated Hemoglobin A1c of 9.1, indicating poor glycemic control. Coordination with her undercar specialist for an adjusted management plan is necessary to better regulate her diabetes and mitigate risks of complications. Discuss starting statin and ASA at next visit. Refer for DM eye and foot exam. 2.Ingrown toenail necessitates urgent e valuation by a microsoft dynamics ax consultant to prevent further complications, given her uncontrolled diabetes. Referral placed. 3. Marijuana Use Disorder/Sciatic Nerve Pain: Although the patient reports using marijuana for sciatic pain relief, alternative strategies must be explored to mitigate its potential impact on her pulmonary health. 4. Routine Preventative Screenings: Sche duling overdue preventative exams, including a mammogram and Cologuard test, to address cancer screening deficits is vital, alongside ensuring she completes her diabetic eye exam to prevent vision complications. 5. Mental Health and Weight Management: Continuing mental health support is essential to manage her depressive disorder and stabilize weight gains or losses that have occurred with her illness. 6. Respiratory Concerns: referral for lilliam roberson specialist assessment given her history of pneumonia and persistent cough episodes aggravated by marijuana use. Labs ordered to be done today, cc'd to her endo along w/ todays note Patient Instructions - Follow up with your undercar specialist an d provide them with the updated A1c levels. - Schedule and complete the Cologuard te st for colon cancer screening. - Investigate alternative ways to manage sciatic nerve pain without using marijuana. - Schedule the diabetic eye exam and cookie mogram as discussed. - Seek podiatric evaluation for your ing rown toenail to prevent infection. - Engage in discussions with your mental health provider about consistent care and support. - Monitor any respiratory symptoms that may develop or worsen. RTO 1 year CPe sooner PRN Consent Patient consent was obtained verbally in the clinic for all recommended diagnostics, including discussion of associated risks and benefits. During the appointment, I reviewed the importance of these assessments for her chronic conditions and overall health maintenance. She agreed to proceed with the referrals and tests, acknowledging an understanding of the proposed medical plan. Patient was inormed and verbally consented to the use of an ambient scribe for clinic note documentation during this visit. An additional 40 minutes was spent addressing the problem(s) noted at todays visit. This includes time spent before the visit reviewing the chart, time spent during the visit, and time spent after the visit on documentation reviewing laboratory results, diagnostic imaging, medications, performing a medically necessary evaluation, counseling on diagnoses, care coordination, ordering appropriate tests, ordering appropriate medications, review of tests performed by other providers, reporting test results with the patient, communication with other healthcare providers. [facility] Medical History (Updated 02/02/25 @ 16:48 by Kayla Roca, [facility]) Acute abdomen Anxiety Back pain Bilateral carpal tunnel syndrome Chronic pain of left lower extremity Colon cancer screening DDD (degenerative disc disease) Depression Diabetes mellitus Diabetes mellitus type 2 with complications Hyperglycemia Over weight Screening mammogram for breast cancer Surgical History History of back surgery History of neck surgery History of tonsillectomy History of tubal ligation History of umbilical hernia repair History of wisdom tooth extraction Family History Father Liver failure Mother No problems noted. 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 1. Little interest or pleasure in doing things: several days 2. Feeling down, depressed, or hopeless: several days 3. Trouble falling or staying asleep, or sleeping too much: several days 4. Feeling tired or having little energy: several days 5. Poor appetite or overeating: several days 6. Feeling bad about yourself - or that you are a failure or have let yourself or your family down: several days 7. Trouble concentrating on things, such as reading the newspaper or watching television: several days 8. Moving or speaking so slowly that other people could have noticed. Or the opposite - being so fidgety or restless that you have been moving around a lot more than usual: several days 9. Thoughts that you would be better off or of hurting yourself in some way: several days Total score: 9 Depression Screening Interpretation: Positive Depression Screening Follow-up: Existing condition and In treatment Depression Screening Done: Yes 04687 - PHQ-9 Billing: Yes Source: Developed by Drs. Vahid Mayberry, Maren Harris, Chema Singh and colleagues, with an educational torito from [employer]. Thrive Questionnaire Date Thrive assessed: 02/02/25 I am a: Patient What is your living situation today?: I do not have a steady places to live I choose not to answer this question Within the past 12 months, did the food you bought not last and you didn't have the money to get more?: Never true Within the past 12 months, did you worry whether your food would run out before you got money to buy more?: Never true Do you have trouble paying for medicines?: I choose not to answer this question Do you have trouble getting transportation to medical appointments?: No Do you have trouble paying your heating and electricity bill?: No Do you have trouble taking care of your child, family member or friend?: No Do you have trouble with day-to-day activities such as bathing, preparing meals, shopping, managing finances, etc.?: No Are you currently unemployed and looking for a job?: No Are you interested in more education?: No Please select the resources that you would like help with: None Currently or been in a relationship where the following occur: I choose not to answer THRIVE Score: 1 AUDIT C Alcohol Use Questionnaire (AUDIT-C) 1. How often do you have a drink containing alcohol?: Never 2. How many drinks containing alcohol do you have on a typical day when you are drinking?: 1 or 2 3. How often do you have six or more drinks on one occasion?: Never Total Score: 0 Score Reviewed/Action Taken: Yes CARSON-7 AMB Questionnaire CARSON-7 Date CARSON - 7 assessed: 02/02/25 Feeling nervous, anxious, or on edge: 1 = Several days Not being able to stop or control worryin = Several days Worrying too much about different things: 1 = Several days Trouble relaxin = Several days Being so restless that it is hard to sit still: 1 = Several days Becoming easily annoyed or irritable: 1 = Several days Feeling afraid as if something awful might happen: 3 = Nearly every day Total CARSON-7 score (0-4 normal; 5-9 mild; 10-14 moderate; 15-21 severe): 9 Source: Developed by Drs. Vahid Mayberry, Maren Harris, Chema Singh and colleagues, with an educational torito from [employer]. CARSON-7 Assessment Billing CARSON-7 Assessment Tool: CARSON-7 Assessment 52794 Physical exam (Primary Care) Vital Signs: Last Vital Signs Temp 96.8 F 02/02/25 10:09 Pulse 78 02/02/25 10:09 Resp 12 02/02/25 10:09 BP 98/66 02/02/25 10:09 Pulse Ox 96 02/02/25 10:09 Oxygen Delivery Method Room Air 02/02/25 10:09 BMI result Body Mass Index 24.5 Tobacco/Smoking Status: Tobacco use Status Tobacco use date assessed 02/02/25 02/02/25 10:06 Patient Tobacco Use Status Former Tobacco user 02/02/25 10:06 e-Cigarette/Vaping Use Never Used 02/02/25 10:06 PHQ-9: PHQ-9 Score PHQ-9: Total score 9 02/02/25 10:30 Depression Screening Interpretation: Positive Depression Screening Follow-up: Existing condition and In treatment Thrive Assessment: Date of Thrive Assessment Date Thrive assessed 02/02/25 02/02/25 10:06 Currently or been in a relationship where the following occur: I choose not to answer Office Procedures Diabetic Foot Exam Details: abnormal monfilament and vibratory sensation bilat G9226 - Diabetic Foot Exam Results AMB Hemoglobin A1c 2 AMB Hemoglobin A1c 9.1 % Last Edit by Robert Lobo MA on 02/02/25 10:27 Results Reviewed Results Reviewed: Laboratory Last Values Hgb A1c (Clinic) 9.1 % (4.0-6.0) H 02/02/25 10:14 Coding Level of Care Code Est Pt Level 5 (64752) Est Pt Prev Care 40-64y(62862) Diagnoses Encounter for general adult medical examination with abnormal findings Z00.01 Diabetes mellitus type 2 with complications E11.8 Family history of colon cancer Z80.0 Type 2 diabetes mellitus with hyperglycemia, with long-term current use of insulin E11.65; Z79.4 Diabetes mellitus complication status: with hyperglycemia Moderate episode of recurrent major depressive disorder F33.1 Major depression episode severity: moderate Ingrowing nail, right great toe L60.0 Menopause Z78.0 History of pneumonia Z87.01 Wheezing R06.2 Degeneration of intervertebral disc of lumbar region, unspecified whether pain present M51.369 Spinal region: lumbar Disc-related pain type: unspecified whether pain present Anxiety F41.9 PVD (peripheral vascular disease) I73.9 Marihuana user F12.90 CPT Codes Diabetic Foot Exam - CPT: G9226 - Diabetic Foot Exam ([id number]) Additional Codes CARSON-7 Assessment Billing - CARSON-7 Assessment Tool: CARSON-7 Assessment 38574 ([id number]) PHQ-9 - 68238 - PHQ-9 Billing: Yes ([id number]) Assessment & Plan Assessment & Plan (1) Encounter for general adult medical examination with abnormal findings: Code(s): Z00.01 - Encounter for general adult medical examination with abnormal findings (2) Diabetes mellitus type 2 with complications: Code(s): E11.8 - Type 2 diabetes mellitus with unspecified complications Category: Medical (3) Family history of colon cancer: Comment: Grandmother in her 70s Code(s): Z80.0 - Family history of malignant neoplasm of digestive organs Category: Medical (4) Insulin use (long-term) in type 2 diabetes: Code(s): E11.9 - Type 2 diabetes mellitus without complications; Z79.4 - intermodal truck driver (current) use of insulin Category: Medical Qualifiers: Diabetes mellitus complication status: with hyperglycemia Qualified Code(s): E11.65 - Type 2 diabetes mellitus with hyperglycemia; Z79.4 - halfway (current) use of insulin (5) MDD (major depressive disorder), recurrent episode: Comment: Active with outside counselor in prescriber. Taking medications as directed. Code(s): F33.9 - Major depressive disorder, recurrent, unspecified Category: Medical Qualifiers: Major depression episode severity: moderate Qualified Code(s): F33.1 - Major depressive disorder, recurrent, moderate (6) Ingrowing nail, right great toe: Code(s): L60.0 - Ingrowing nail Category: Medical (7) Menopause: Code(s): Z78.0 - Asymptomatic menopausal state Category: Medical (8) History of pneumonia: Code(s): Z87.01 - Personal history of pneumonia (recurrent) Category: Medical (9) Wheezing: Code(s): R06.2 - Wheezing Category: Medical (10) DDD (degenerative disc disease): Category: Medical Qualifiers: Spinal region: lumbar Disc-related pain type: unspecified whether pain present Qualified Code(s): M51.369 - Other intervertebral disc degeneration, lumbar region without mention of lumbar back pain or lower extremity pain (11) Anxiety: Code(s): F41.9 - Anxiety disorder, unspecified Category: Medical (12) PVD (peripheral vascular disease): Code(s): I73.9 - Peripheral vascular disease, unspecified Category: Medical (13) Marihuana user: Code(s): F12.90 - Cannabis use, unspecified, uncomplicated Category: Medical Plan: Marijuana: Natural = Safe, Right? Marijuana is readily available to use in many states in the [facility]. Understanding the possible risks of use is important to ensure the safety. No matter how you use marijuana (smoke it, eat it, or apply to your skin), it may cause problems with both short term and long term care phlebotomist use How marijuana affects your BRAIN: Potential effects from Short Term Use Poor focus, memory and reaction time Difficulty with problem solving Hallucinations, paranoia, anxiety Potential effects from Airport Maintenance Chief Use Memory problems and trouble learning new things Depression, hallucinations, paranoia, anxiety, worsening PTSD symptoms addiction Brain. It is not safe to drive while on marijuana. It makes it hard to typo machine operator distance, concentrate, react quickly to signals and sounds, be alert and coordinated. If alcohol is combined, this risk is even higher! In regular users, some of the effects from shelter use may last for days or even weeks after stopping marijuana. How inhaling marijuana affects your LUNGS: Inhaling harmful chemicals Gases Small particles Carcinogens (toxins linked to cancer) Breathing problems similar to tobacco smokers Daily cough with mucus Difficulty breathing Lung infections (bronchitis, pneumonia) Lungs How marijuana affects your HEART: Increases risk of heart attack Within the first hour of smoking Increases heart rate 20?100% increase after smoking Increase lasts up to three hours Changes in heart rhythm Feels like your heart skips a beat, or is fluttering, or beating too fast or too slow Heart Is it SAFE to use marijuana with other medications? A combination that can be concerning is the use of opioids and/or benzodiazepines with marijuana. Opioids + Benzodiazepines + Marijuana: Drowsiness: All three can cause drowsiness. Reaction time: All three can reduce reaction time. Do not drive or operate machinery. Overdose: Opioids and Benzodiazepines can cause reduced breathing and in some cases, breathing can stop and a person can . Marijuana containing higher levels of THC may cause difficulty with thinking and memory and this could result in medication errors where extra doses of opioids, benzodiazepines, or other medications may be taken. What is the harm? Example of Opioids Morphine (MS Contin?, Mary Ann?) Oxycodone (Percocet?, OxyContin?) Hydrocodone (Vicodin?, [place]?) Fentanyl (Duragesic?) Methadone Heroin Example of Benzodiazepines Lorazepam (Ativan?) Diazepam (Valium?) Alprazolam (Xanax?) Clonazepam (Klonopin?) If you have specific questions about the safety of using marijuana with other medications, please contact your provider or pharmacist. Some marijuana users can become addicted! You can have problems with marijuana withdrawal. You may have withdrawal symptoms the day after you stop using. These can get worse 2 to 3 days after using and can take 1 to 2 weeks or longer to go away. Recovery and Treatment Contact your provider or health care team if you are having concerns about your marijuana use or to learn more about available treatment services. The marijuana plant is not an FDA-approved medicine: The U.S. Food and Drug Administration (FDA) has not approved the marijuana plant as a medication due to lack of studies on the risks and benefits. Marijuana contains over 100 chemical substances known as cannabinoids. Some of these, like tetrahydrocannabinol (THC), have mind altering effects and can be intoxicating. Cannabidiol (CBD), another cannabinoid, does not cause the same ?high? users of THC experience. THC has been studied for the treatment of several conditions, including nausea and increasing appetite. CBD is similarly being studied for a number of conditions, including childhood epilepsy and inflammation. What is different between the marijuana product I get from the marijuana shop and a prescription from the pharmacy? The right dose of any medicine is important. A specific dose of THC is approved to treat nausea, but high doses of THC may cause vomiting. The ingredients in a medicine must be measured and stay the same from one dose to the next. The marijuana plant contains unknown ingredients that change from plant to plant. This makes it hard to control the ?dose? of marijuana needed to treat a condition and use it in the same way we use other medicines. Future studies are ongoing to establish the role of the marijuana plant and the cannabinoids found in the plant for treatment of medical conditions. If you have questions about using a marijuana product for a medical condition, please discuss this with your medical provider to determine the most appropriate treatment for you. [place] Providers are not able to prescribe marijuana products. Information in this document was compiled by the [facility] Substance Abuse treatment and Education ([facility]). It contains information from factsheets by the National [place] on Drug Abuse (www.drugabuse.gov) and presentation by Alcira Chaudhary, Alcira Forde, & Dominik Sahu (2010) entitled ?What providers need to know about cannabis use in Veterans with mental health conditions: Research, policy, practice,? and an additional reference: Michelle Mccarty M.D., Pietro Cloud, Ph.D., Christopher Calderon M.D., and Nikki Bermudez, Ph.D: Adverse Effects of Marijuana. N Engl J Med 2014; 370:8179-9503, May 04, 2014 DOI: 10.1056/[id number]. [facility] Academic Detailing Service Plan . Orders: Orders 2 XR DEXA axial skeleton Today E11.65 - Type 2 diabetes mellitus with hyperglycemia, E11.8 - Type 2 diabetes mellitus with unspecified complications, Z13.820 - Encounter for screening for osteoporosis, Z78.0 - Asymptomatic menopausal state, Z79.4 - intermodal truck driver (current) use of insulin AMB Hemoglobin A1c Today Z13.9 - Encounter for screening, unspecified MM tomosynthesis screening BI Today Z12.31 - Encounter for screening mammogram for malignant neoplasm of breast Microalbumin, Random (w Creat) Today E11.65 - Type 2 diabetes mellitus with hyperglycemia, E11.8 - Type 2 diabetes mellitus with unspecified complications, Z79.4 - halfway (current) use of insulin Lipid Panel Today E11.65 - Type 2 diabetes mellitus with hyperglycemia, E11.8 - Type 2 diabetes mellitus with unspecified complications, Z79.4 - halfway (current) use of insulin AMB Diabetic Foot Exam Today E11.8 - Type 2 diabetes mellitus with unspecified complications Referrals 2 Pulmonology Referral R06.2 - Wheezing, Z87.01 - Personal history of pneumonia (recurrent) Podiatry Referral E11.8 - Type 2 diabetes mellitus with unspecified complications, L60.0 - Ingrowing nail Diabetic Eye Exam Referral E11.8 - Type 2 diabetes mellitus with unspecified complications Cologuard Test Z12.11 - Encounter for screening for malignant neoplasm of colon, Z12.12 - Encounter for screening for malignant neoplasm of rectum Patient Instructions: Health screenings for women You should visit your health care provider from time to time, even if you are healthy. The purpose of these visits is to: Screen for medical issues Assess your risk for future medical problems Encourage a healthy lifestyle Update vaccinations and other preventive care services Help you get to know your provider in case of an illness Information Even if you feel fine, you should still see your provider for regular checkups. These visits can help you avoid problems in the future. For example, the only way to find out if you have high blood pressure is to have it checked regularly. High blood sugar and high cholesterol levels also may not have any symptoms in the early stages. A simple blood test can check for these conditions. There are specific times when you should see your provider or receive specific health screenings. The [place] Preventive Services Task Force publishes a list of recommended screenings. Below are screening guidelines for women ages 18 to 39. BLOOD PRESSURE SCREENING Your blood pressure should be checked at least once every 3 to 5 years if: Your blood pressure is in the normal range (top number less than 120 mm Hg and bottom number less than 80 mm Hg) You don't have risk factors for high blood pressure Ask your provider if you need your blood pressure checked more often if: The top number is 120 to 129 mm Hg or the bottom number is 70 to 79 mm Hg You have diabetes, heart disease, kidney problems, are overweight, or have certain other health conditions You have a first-degree relative with high blood pressure You are Black You had high blood pressure during a If the top number is 130 mm Hg or greater or the bottom number is 80 mm Hg or greater, this is considered stage 1 hypertension. Schedule an appointment with your provider to learn how you can reduce your blood pressure. Watch for blood pressure screenings in your area. Ask your provider if you can stop in to have your blood pressure checked. BREAST CANCER SCREENING Experts do not agree about the benefits of breast self-exams in finding breast cancer or saving lives. Talk to your provider about what is best for you. A screening mammogram is not recommended for most women under age 40. Your provider may discuss and recommend mammograms, MRI scans, or ultrasounds if you have an increased risk for breast cancer, such as: A mother or sister who had breast cancer at a young age (most often starting screening earlier than the age the close relative was diagnosed) You carry a high-risk genetic marker CERVICAL CANCER SCREENING Cervical cancer screening should start at age 21 years unless your provider advises otherwise. After the first test: Women ages 21 through 29 should have a Pap test every 3 years. Exoprts do not agree on whether HPV testing is recommended for this age group. Women ages 30 through 65 should be screened with either a Pap test every 3 years or the HPV test every 5 years or both tests every 5 years (called cotesting ). Women who have been treated for precancer (cervical dysplasia) should continue to have Pap tests for 20 years after treatment or until age 65, whichever is longer. If you have had your uterus and cervix removed (total hysterectomy), and you have not been diagnosed with cervical cancer or precancer (high grade cervical neoplasia), you do not need cervical cancer screening. CHOLESTEROL SCREENING Cholesterol screening should begin at: Age 45 for women with no known risk factors for coronary heart disease Age 20 for women with known risk factors for coronary heart disease Repeat cholesterol screening should take place: Every 5 years for women with normal cholesterol levels More often if changes occur in lifestyle (including weight gain and diet) More often if you have diabetes, heart disease, kidney problems, or certain other conditions DIABETES SCREENING You should be screened for diabetes starting at age 35 and then repeated every 3 years if you have no risk factors for diabetes. Screening may need to start earlier and be repeated more often if you have other risk factors for diabetes, such as: You have a first degree relative with diabetes. You are overweight or have obesity. You have high blood pressure, prediabetes, or a history of heart disease. Screening for diabetes should be done if you are planning to become and you are overweight and have other risk factors such as high blood pressure. DENTAL EXAM Go to the dentist once or twice every year for an exam and cleaning. Your dentist will evaluate if you need more frequent visits. EYE EXAM Have an eye exam every 5 to 10 years before age 40. If you have vision problems, have an eye exam every 2 years or more often if recommended by your provider. You should have an eye exam that includes an examination of your retina (back of your eye) at least every year if you have diabetes. IMMUNIZATIONS Commonly needed vaccines include: Flu shot: get one every year. COVID-19 vaccine: ask your provider what is best for you. Tetanus-diphtheria and acellular pertussis (Tdap) vaccine: have one at or after age 19 as one of your tetanus-diphtheria vaccines if you did not receive it as an adolescent. Tetanus-diphtheria: have a booster (or Tdap) every 10 years. Varicella vaccine: receive 2 doses if you never had chickenpox or the varicella vaccine. Hepatitis B vaccine: receive 2, 3, or 4 doses, depending on your exact circumstances. Measles, mumps, and rubella (MMR) vaccine: receive 1 to 2 doses if you are not already immune to MMR. Your provider can tell you if you are immune. Ask your provider about the human papillomavirus (HPV) vaccine if: You have not received the HPV vaccine in the past You have not completed the full vaccine series (you should catch up on this shot) Ask your provider if you should receive other immunizations if you have certain health problems that increase your risk for some diseases such as pneumonia. INFECTIOUS DISEASE SCREENING Women who are sexually active should be screened for chlamydia and gonorrhea up until age 25. Women 25 years and older should be screened for chlamydia and gonorrhea if at high risk. Screening for hepatitis C: All adults ages 18 to 79 should get a one-time test for hepatitis C. people should be screened at every . Screening for human immunodeficiency virus (HIV): All people ages 15 to 65 should get a one-time test for HIV. Depending on your lifestyle and medical history, you may also need to be screened for infections such as syphilis and HIV, as well as other infections. PHYSICAL EXAM All adults should visit their provider from time to time, even if they are healthy. The purpose of these visits is to: Screen for disease Assess your risk of future medical problems Encourage a healthy lifestyle Update your vaccinations and other preventive care services Maintain a relationship with a provider in case of an illness Your height, weight, and BMI should be checked at every exam. During your exam, your provider may ask you about: Depression and anxiety Diet and exercise Alcohol and tobacco use Safety issues, such as using seat belts, smoke detectors, and intimate partner violence Your medicines and risk for interactions SKIN SELF-EXAM Your provider may check your skin for signs of skin cancer, especially if you're at high risk, such as if you: Have had skin cancer before Have close relatives with skin cancer Have a weakened immune system OTHER SCREENING Talk with your provider about colon cancer screening if you have a strong family history of colon cancer or polyps, or if you have had inflammatory bowel disease or polyps yourself. Routine bone density screening of women under 40 is not recommended.
[2025-02-02 10:09] VITALS: BP 98/66; PULSE 78; RESP 12; TEMP 36; O2SAT 96; BMI 24.5
--- OUTSIDE RECORDS SUMMARY | 2025-02-02 11:41 | XMS_ITS | Referral Summary ---
Author Organization [facility] Address [address] [place] [address] Care Team Providers Care Electrical Equipment Technician Name Role Phone [facility] Primary Care Provider [phone] Allergies Active Allergy Reactions Criticality Noted Date Comments Bee Venom Protein (Honey Bee) Swelling High 2023 Cinnamon Itching 10/27/[address] (CYMBALTA) 20 mg capsule Take 120 mg by mouth once a day. Active mirtazapine (REMERON) 15 mg tablet Take 7.5 mg by mouth nightly. Active insulin glargine (LANTUS SOLOSTAR) 100 unit/mL insulin pen Inject 24 Units under the skin nightly. 4.8 mL 10/27/2024 Active Social History Tobacco Use Types Packs/Day Years Used Date Smoking Tobacco: Former Cigarettes Tobacco Cessation:Counseling Given: Not Answered Alcohol Use Standard Drinks/Week Comments Not Currently 0 (1 standard drink = 0.6 oz pur e alcohol) Comments No Sex and Gender Information Value Date Recorded Sex Assigned at Female 10/27/2024 2:41 PM EST Legal Sex Female 2:20 PM EST Gender Identity Not on file Sexual Orientation Not on file Last Filed Vital Signs Vital Sign Reading Time Taken Comments Blood Pressure 135/75 10/27/2024 4:56 PM EST Pulse 75 10/27/2024 4:56 PM EST Temperature 36.5 ??C (97.7 ??F) 10/27/2024 4:56 PM ES T Respiratory Rate 19 10/27/2024 4:56 PM EST Oxygen Saturation 99% 10/27/2024 4:56 PM EST Inhaled Oxygen Concentration - - Weight 78 kg (172 lb) 10/27/2024 2:25 PM EST Height 175.3 cm (5' 9 ) 10/27/2024 2:25 PM EST Body Mass Index 25.4 10/27/2024 2:25 PM EST Plan of Treatment Not on file Procedures * Due to [place] [employer] law, this organization might not be sharing negative HIV tests. Procedure Name Priority Date/Time Associated Diagnosis Comments BASIC METABOLIC PANEL STAT 10/27/2024 2:50 PM EST from Last 3 Months or Most Recently Relevant to Health Maintenance Results * Due to [place] [employer] law, this organization might not be sharing negative HIV tests. * (ABNORMAL) BMP - Basic Metabolic Panel (10/27/2024 2:50 PM EST) NA 138 135 - 145 mmol/L 10/27/2024 4:00 PM EST [facility] K 3.9 3.5 - 5.3 mmol/L 10/27/2024 4:00 PM EST [facility] Cl 101 98 - 107 mmol/L 10/27/2024 4:00 PM EST [facility] CO2 26 22 - 32 mmol/L 10/27/2024 4:00 PM EST [facility] BUN 12 7 - 23 mg/dL 10/27/2024 4:00 PM EST [facility] Creatinine 0.83 0.50 - 1.20 mg/dL 10/27/2024 4:00 PM EST [facility] Glucose 361(H) 65 - 99 mg/dL 10/27/2024 4:00 PM EST [facility] Calcium 9.8 8.6 - 10.5 mg/dL 10/27/2024 4:00 PM EST [facility] Anion Gap 11 5 - 15 10/27/2024 4:00 PM EST [facility] eGFR 85 >=60 mL/min/1. 73m2 10/27/2024 4:00 PM EST [facility] Comment:The estimated glomer ular filtration rate (eGFR) is calculated using a new formula developed by the NKF-ASN task force to eliminate race-based correction factors. The new formula uses serum/plasma creatinine, age, and gender to determine eGFR. A value below 60mls/min might indicate kidney disease and will be flagged. For additional information, see Tonny gilbert al, Am J Kidney Dis. 2021;79(2):268- 288, A Unifying Approach for GFR estimation: Recommendations of the NKF-ASN Task Force on Reassessing the Inclusion of Race in Diagnosing Kidney Disease . Blood Structure of peripheral vein / Unknown Venipuncture / Unknown 10/27/2024 2:50 PM EST 10/27/2024 2:54 PM EST us Shahla Cortez MD LAB BLOOD ORDERABLES Final Result [facility] [address] [place] [address], from Last 3 Months or Most Recently Relevant to Health Maintenance Insurance # 1 [place], [place] [id number] [place] [address] Care Teams Electrical Equipment Technician Relationship Specialty Start Date End Date [address] [address] PCP - General 10/27/24
--- OUTSIDE RECORDS SUMMARY | 2025-02-02 11:41 | XMS_ITS | Clinical Summary ---
Author Organization [facility] Address [address] [place] [address] Care Team Providers Care Steward/Stewardess Room Name Role Phone [place] Primary Care Provider [phone] Allergies Active Allergy Reactions Criticality Noted Date [...] 10/27/2024 2:25 PM EST Plan of Treatment Health Maintenance Due Date Last Done Comments Cervical Cancer Screening 1972 Cologuard 1972 Colon Cancer Screening 1972 Colonoscopy 1972 FOBT / Fit Test 1972 HIV Screening 1972 HPV and Pap Smear 1972 Hemoglobin A1C 1972 Hepatitis C Screening 1972 Pap Smear 1972 Sigmoidoscopy 1972 Ophthalmology Exam 1982 Urine Microalbumin 1982 Hepatitis B Vaccines (1 of 3 - 19+ 3-dose series) 12/31 Pneumococcal Vaccine: 50+ Years (1 of 2 - PCV) 991 DTaP,Tdap,and Td Vaccines (1 - Tdap) [address] Lung Cancer Screening (Baseline) 2022 Zoster Vaccines (1 of 2) 2022 COVID-19 Vaccine (1 - season) 2024 Influenza Vaccine (#1) 2024 Alcohol/Substance Use Screening 11/30/2024 Depression Screening and Follow-Up 11/30/2024 Social Drivers of Health Annual Screening 11/30/2024 Basic Metabolic Panel 10/27/2025 10/27/2024 RSV Vaccine (60+ years old a nd patients) (1 - 1-dose 75+ series) 2047 Procedures * Due to [place] [employer] law, this organization might not be sharing negative HIV tests. Procedure Name Priority Date/Time Associated Diagnosis Comments BASIC METABOLIC PANEL STAT 10/27/2024 2:50 PM EST from Last 3 Months or Most Recently Relevant to Health Maintenance Results * Due to [place] [employer] law, this organization might not be sharing negative HIV tests. * (ABNORMAL) BMP - Basic Metabolic Panel (10/27/2024 2:50 PM EST) NA 138 135 - 145 mmol/L 10/27/2024 4:00 PM EST [facility] K 3.9 3.5 - 5.3 mmol/L 10/27/2024 4:00 PM [facility] Cl 101 98 - 107 mmol/L 10/27/2024 4:00 PM [facility] CO2 26 22 - 32 mmol/L 10/27/2024 4:00 PM [facility] BUN 12 7 - 23 mg/dL 10/27/2024 4:00 PM [facility] Creatinine 0.83 0.50 - 1.20 mg/dL 10/27/2024 4:00 PM [facility] Glucose 361(H) 65 - 99 mg/dL 10/27/2024 4:00 PM [facility] Calcium 9.8 8.6 - 10.5 mg/dL 10/27/2024 4:00 PM [facility] Anion Gap 11 5 - 15 10/27/2024 4:00 PM [facility] eGFR 85 >=60 mL/min/1. 73m2 10/27/2024 4:00 PM [facility] Comment:The estimated glomer ular filtration rate (eGFR) is calculated using a new formula developed by the NKF-ASN task force to eliminate race-based correction factors. The new formula uses serum/plasma creatinine, age, and gender to determine eGFR. A value below 60mls/min might indicate kidney disease and will be flagged. For additional information, see Lancaster et al, Am J Kidney Dis. 2021;79(2):268- 288, A Unifying Approach for GFR estimation: Recommendations of the NKF-ASN Task Force on Reassessing the Inclusion of Race in Diagnosing Kidney Disease . Blood Structure of peripheral vein / Unknown Venipuncture / Unknown 10/27/2024 2:50 PM EST 10/27/2024 2:54 PM EST Nico Jay Cortez MD LAB BLOOD ORDERABLES Final Result [facility] [address] [place] [address], from Last 3 Months or Most Recently Relevant to Health Maintenance Insurance [employer] Care Teams Steward/Stewardess Room Relationship Specialty Start Date End Date [address] [address] PCP - General 10/27/24
--- OUTSIDE RECORDS SUMMARY | 2025-02-02 11:41 | XMS_ITS | Clinical Summary ---
Author Organization [facility] Address [address] [place] [address] Care Team Providers Care Direct Care Specialist Name Role Phone Raegan Mitchell NP Primary Care Provider Social History Tobacco Use Types Packs/Day Years Used Date Smoking Tobacco: Never Assessed Comments Unknown Sex and Gender Information Value Date Recorded Sex Assigned at Not on file Legal Sex Female 6:42 AM EST Gender Identity Not on file Sexual Orientation Not on file Last Filed Vital Signs Vital Sign Reading Time Taken Comments Blood Pressure - - Pulse - - Temperature - - Respiratory Rate - - Oxygen Saturation - - Inhaled Oxygen Concentration - - Weight 81.6 kg (180 lb) 05/07/2023 2:54 PM EDT Height 175.3 cm (5' 9 ) 05/07/2023 2:54 PM EDT Body Mass Index 26.58 05/07/2023 2:54 PM EDT Plan of Treatment Health Maintenance Due Date Last Done Comments Breast Cancer Screening 1972 Hepatitis B Vaccines (1 of 3 - 19+ 3-dose series) 1991 Pneumococcal Vaccine: 50+ Years (1 of 2 - PCV) 1991 Pneumococcal Vaccine: Pediatrics (0 to 5 Years) and At-Risk Patients (6 to 64 Years) (1 of 2 - PCV) 1991 Cervical Cancer Screening: P ap Smear 1993 Zoster Vaccines (1 of 2) 2022 Colorectal Cancer Screening: Colonoscopy 11/02/2022 Depression Screening 11/02/2022 HIV Screening 11/02/2022 Hepatitis C Screening 11/02/2022 Social Influencers of Health Screening 11/02/2022 COVID-19 Vaccine ( - 2023-2 5 season) 2024 Influenza Vaccine (#1) 2024 DTaP,Tdap,and Td Vaccines (3 - Td or Tdap) 10/03/2032 10/03/2022, 12/23/2020 HIB Vaccines Aged Out No longer eligi ble based on patient's age to complete this topic HPV Vaccines Aged Out No longer eligi ble based on patient's age to complete this topic Hepatitis A Vaccines Aged Out No long er eligible based on patient's age to complete this topic IPV Vaccines Aged Out No longer eligi ble based on patient's age to complete this topic MMR Vaccines Aged Out No longer eligi ble based on patient's age to complete this topic Meningococcal ACWY Vaccine Aged Out N o longer eligible based on patient's age to complete this topic Meningococcal B Vacine Aged Out No lo nger eligible based on patient's age to complete this topic RSV Immunization Patients Under 20 months Aged Out No longer eligible b ased on patient's age to complete this topic Varicella Vaccines Aged Out No longer eligible based on patient's age to complete this topic Care Teams Direct Care Specialist Relationship Specialty Start Date End Date Raegan Mitchell NP [address] [place] [address] [address] [place] [address] PCP - General 01/13/23
== END 2025-02-02 10:41 | disposition home or self-care (01) ==
PROVIDERS: PCP Nurse Practitioner Family; Visit Provider Nurse Practitioner Family
DX: Z00.01 Encounter for general adult medical examination with abnormal findings (principal); E11.8 Type 2 diabetes mellitus with unspecified complications; Z80.0 Family history of malignant neoplasm of digestive organs; E11.65 Type 2 diabetes mellitus with hyperglycemia; Z79.4 Long term (current) use of insulin; F33.1 Major depressive disorder, recurrent, moderate; L60.0 Ingrowing nail; Z78.0 Asymptomatic menopausal state; Z87.01 Personal history of pneumonia (recurrent); R06.2 Wheezing; M51.369 Other intervertebral disc degeneration, lumbar region without mention of lumbar back pain or lower extremity pain; I73.9 Peripheral vascular disease, unspecified; F41.9 Anxiety disorder, unspecified; F12.90 Cannabis use, unspecified, uncomplicated; Z13.9 Encounter for screening, unspecified

== ENCOUNTER → 2025-02-02 10:01 | Outpatient (BNVA) | payer OTHER, SELFPAY | PROVIDERS: PCP Nurse Practitioner Family; Visit Provider Nurse Practitioner Family | DX: Z00.01 Encounter for general adult medical examination with abnormal findings (principal); E11.65 Type 2 diabetes mellitus with hyperglycemia; F33.1 Major depressive disorder, recurrent, moderate; L60.0 Ingrowing nail; R06.2 Wheezing; I73.9 Peripheral vascular disease, unspecified; M51.369 Other intervertebral disc degeneration, lumbar region without mention of lumbar back pain or lower extremity pain; F41.9 Anxiety disorder, unspecified; F12.90 Cannabis use, unspecified, uncomplicated; Z78.0 Asymptomatic menopausal state; Z87.01 Personal history of pneumonia (recurrent); Z80.0 Family history of malignant neoplasm of digestive organs; Z79.4 Long term (current) use of insulin | CPT/HCPCS: 83036; 96127; 99212; 99396 ==

== ENCOUNTER 2025-02-21 15:25 | Outpatient (AMB) | payer OTHER, SELFPAY ==
[2025-02-21 15:27] VITALS: BP 112/60; PULSE 77; O2SAT 98; BMI 25.0
--- NOTE | 2025-02-21 15:27 | MHC.OFFVIS ---
Vital Signs 02/21/25 15:27 Height 5 ft 9 in Weight 169 lb BMI 25.0 BP 112/60 Blood Pressure Location Rt brachial Position Sitting Pulse 77 Pulse Source Pulse Oximeter Pulse Oximetry (%) 98 Oxygen Delivery Method Room Air Intake Visit Reasons: Wheezing Coach Wirer Required: No Dispatch Clerk: Dispatch Clerk offered & declined Accompanied by: Self / Same As Patient Allergies bee pollen [BEE STINGS] Allergy (Severe, Verified 02/21/25 15:33) ANAPHYLAXIS tramadol Allergy (Severe, Verified 02/21/25 15:33) mental confusion cinnamon [CINNAMON] Allergy (Intermediate, Verified 02/21/25 15:33) HIVES trazodone [TRAZODONE] Allergy (Intermediate, Verified 02/21/25 15:33) PER H&P, ? Medication List - Last Reconciled 02/21/25 by Amy Rios LPN alcohol swabs (BD Alcohol Swabs) pad topical amitriptyline 25 mg PO BEDTIME blood-glucose meter (OneTouch Verio Flex Meter) As directed blood-glucose meter (OneTouch Verio Flex Start kit) As directed duloxetine 120 mg PO DAILY insulin glargine (Lantus Solostar U-100 Insulin) 20 units subcut BEDTIME mirtazapine 7.5 mg PO BEDTIME pen needle, diabetic (BD Ultra-Fine Short Pen Needle) As directed HPI HPI Wheezing: Details: Cindy is a pleasnt 55 year old female, former smoker, quit 14 years ago with 20 pack year history, everyday marijuana smoker, with underlying DMII, CARSON and MDD. She was referred by PCO for pulmonary evaluation after continued bronchitic symptoms after recent pneumonia. She was evaluated at [facility] ED on 01/19 with URI sx however did not stay for full evaluation due to wait times. She stated that she was dx with influenza A and pneumonia treated with antibiotics, reporting significant relief of symptoms. She continues to report a dry cough, occasionally productive with clear sputum, however denies any chest congestion, dyspnea or wheezing. She had a prescription for albuterol MDI to use in the acute period but has not required it in last two weeks. She denies prior h/o asthma/COPD. She endorses second hand smoke. She denies recurrent respiratory infections. She denies any occupational exposures. She reports seasonal allergies, no recent allergy testing. Cat and three dogs at home. She reports son with asthma and allergies. [facility] Medical History (Updated 02/22/25 @ 08:55 by Rachel Long NP) Diabetes mellitus Diabetes mellitus type 2 with complications Colon cancer screening Screening mammogram for breast cancer Acute abdomen Hyperglycemia Over weight Chronic pain of left lower extremity DDD (degenerative disc disease) Back pain Bilateral carpal tunnel syndrome Anxiety Depression Surgical History (Updated 02/10/25 @ 15:11 by Kayla Roca, CONSTRUCTION SITE MANAGER-) History of colonoscopy (~2019) History of umbilical hernia repair History of back surgery History of tonsillectomy History of tubal ligation History of wisdom tooth extraction History of neck surgery Family History (Reviewed 07/04/24 @ 11:35 by Elif Marinelli [facility]) Father Liver failure Mother No problems noted. 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 Cognitive needs: Yes (cane) Hearing needs: No Vision needs: No Female Reproductive History Menstrual Age of Menarche: 14 Review of Systems Const Denies chills, Denies excessive sweating, Denies fever(s), Denies headache(s) and Denies night sweats Eyes Denies dry eyes and Denies irritation ENT Reports Normal hearing present, Denies headache(s), Denies nasal congestion, Denies nasal discharge, Denies post nasal drip and Denies sore throat Card Denies chest pain, Denies chest pain at rest, Denies chest pain with activity, Denies claudication, Denies leg edema, Denies dyspnea, Denies dyspnea on exertion, Denies orthopnea and Denies paroxysmal nocturnal dyspnea Resp Denies chest congestion, Denies excessive phlegm production, Denies pain on inspiration, Denies pain with cough, Denies dyspnea, Denies dyspnea on exertion, Denies stridor and Denies wheezing Musc Denies myalgias Neuro Reports Normal hearing present and Denies headache(s) Endo Denies excessive sweating Leopoldo/Lymph Denies lymphadenopathy Aller/Immun Denies wheezing Physical Exam Vital Signs: Last Vital Signs Pulse 77 02/21/25 15:27 BP 112/60 02/21/25 15:27 Pulse Ox 98 02/21/25 15:27 Oxygen Delivery Method Room Air 02/21/25 15:27 BMI result Body Mass Index 25.0 Const General: cooperative, healthy appearing, comfortable, no acute distress, well developed and alert Orientation/consciousness: patient oriented x3 Limitations: no limitations HEENT Head: Yes normal to inspection, Yes normocephalic and Yes atraumatic Ears: hearing grossly normal bilaterally and external ears normal Eyes General: appearance normal, both eyes and all related structures Eyelids: Yes eyelids normal Sclerae: sclerae normal EOM: EOMs intact bilaterally Neck Neck: Yes normal visual inspection and Yes no lymphadenopathy Lymphatic: no lymphadenopathy noted Chest Chest palpation & inspection: normal inspection of the chest Resp Effort & Inspection: normal respiratory effort, able to speak in complete sentences, no audible wheezes, no cough, no stridor, not tachypneic, no tripod positioning and no use of accessory muscles Auscultation: clear to auscultation bilaterally Cardio Jugular venous distension: no JVD Rate: regular rate Rhythm: regular rhythm Skin Other: warm, dry General skin exam: no rashes or lesions noted Neuro General: patient oriented x3 Cranial nerves: Yes Normal hearing present Cognition (Neuro): normal cognition Gait exam (Neuro): Normal gait present Extrem General: Yes normal to inspection, Yes capillary refill normal, Yes no clubbing, cyanosis or edema and Yes no pedal edema Psych Appearance: grossly normal and well kempt Speech and movement: Normal speech and movement present and Clear speech present Affect: normal affect Attitude: cooperative Thought process: Normal thought process present Thought content: Normal thought content present Insight: Good insight present (Psych) Judgement: Good judgement present (Psych) Assessment & Plan Assessment & Plan (1) Cough: Code(s): R05.9 - Cough, unspecified Category: Medical (2) Personal history of tobacco use: Code(s): Z87.891 - Personal history of nicotine dependence Category: Social Hx (3) History of recent pneumonia: Code(s): Z87.01 - Personal history of pneumonia (recurrent) Category: Medical Plan At this time, Cindy reports significant improvements in bronchitic symptoms since being treated for pneumonia. She continues to intermittent cough, will send for PFT to assess for an obstructive defect as she has a 20 year smoking history and continues to smoke marijuana frequently throughout the day. Encouraged use of albuterol MDI, will consider ICS/LABA. Will send for RAST to assess for an allergic component. Will also send for CXR to assess resolution of pneumonia. Smoking cessation reviewed, patient working at cutting down frequency. All questions were answered and patient is in agreement of plan. Will follow up to review results or sooner if needed. Orders: Orders XR chest 2V 02/21/25 R05.9 - Cough, unspecified PFT pulmonary function test 02/21/25 R05.9 - Cough, unspecified Resp Allergy Profile Region I Today Z91.09 - Other allergy status, other than to drugs and biological substances Complete Blood Count Auto Diff Today Z91.09 - Other allergy status, other than to drugs and biological substances Immunoglobulin E Today Z91.09 - Other allergy status, other than to drugs and biological substances Coding Level of Care Code New Pt Level 4 (15234) Diagnoses Cough R05.9 Personal history of tobacco use Z87.891 History of recent pneumonia Z87.01
--- OUTSIDE RECORDS SUMMARY | 2025-02-21 19:14 | XMS_ITS | Referral Summary ---
Author Organization [facility] Address [address] [place] [address] Care Team Providers Care Fancy Stitcher Name Role Phone [facility] Primary Care Provider [phone]- [phone] Allergies Active Allergy Reactions Criticality Noted Date [...] Not on file Procedures * Due to [place] [employer] law, this organization might not be sharing negative HIV tests. Procedure Name Priority Date/Time Associated Diagnosis Comments BASIC METABOLIC PANEL STAT 10/27/2024 2:50 PM EST from Last 3 Months or Most Recently Relevant to Health Maintenance Results * Due to [place] [employer] law, this organization might not be sharing negative HIV tests. * (ABNORMAL) BMP - Basic Metabolic Panel (10/27/2024 2:50 PM EST) NA 138 135 - 145 mmol/L 10/27/2024 4:00 PM EST [facility] K 3.9 3.5 - 5.3 mmol/L 10/27/2024 4:00 PM EST [facility] Cl 101 98 - 107 mmol/L 10/27/2024 4:00 PM EST [facility] CO2 26 22 - 32 mmol/L 10/27/2024 4:00 PM EST [facility] BUN 12 7 - 23 mg/dL 10/27/2024 4:00 PM EST [facility] Creatinine 0.83 0.50 - 1.20 mg/dL 10/27/2024 4:00 PM EST [facility] Glucose 361(H) 65 - 99 mg/dL 10/27/2024 4:00 PM EST [facility] Calcium 9.8 8.6 - 10.5 mg/dL 10/27/2024 4:00 PM EST [facility] Anion Gap 11 5 - 15 10/27/2024 4:00 PM EST [facility] eGFR 85 >=60 mL/min/1. 73m2 10/27/2024 4:00 PM EST [facility] Comment:The estimated glomer ular [...] Cortez MD LAB BLOOD ORDERABLES Final Result [facility] [address] [place] [address], from Last 3 Months or Most Recently Relevant to Health Maintenance Insurance # 1 [place], [place] [id number] [employer] Care Teams Fancy Stitcher Relationship Specialty Start Date End Date [address] [address] PCP - General 10/27/24
--- OUTSIDE RECORDS SUMMARY | 2025-02-21 19:14 | XMS_ITS | Clinical Summary ---
Author Organization [facility] Address [address] [place] [address] Care Team Providers Care Senior Telecommunications Consultant Name Role Phone Raegan Mitchell NP Primary [...] age to complete this topic Care Teams Senior Telecommunications Consultant Relationship Specialty Start Date End Date Raegan Mitchell NP [address] [place] [address] [address] [place] [address] PCP - General 01/13/23
--- OUTSIDE RECORDS SUMMARY | 2025-02-21 19:15 | XMS_ITS | Clinical Summary ---
Author Organization [facility] Address [address] [place] [address] Care Team Providers Care Machine Stoppage Frequency Checker Name Role Phone [place] Primary Care Provider [phone]- [phone] Allergies Active Allergy Reactions Criticality Noted Date [...] 75+ series) 2047 Procedures * Due to [place] [employer] law, this organization might not be sharing negative HIV tests. Procedure Name Priority Date/Time Associated Diagnosis Comments BASIC METABOLIC PANEL STAT 10/27/2024 2:50 PM EST from Last 3 Months or Most Recently Relevant to Health Maintenance Results * Due to [place] [employer] law, this organization might not be sharing negative HIV tests. * (ABNORMAL) BMP - Basic Metabolic Panel (10/27/2024 2:50 PM EST) NA 138 135 - 145 mmol/L 10/27/2024 4:00 PM EST [facility] K 3.9 3.5 - 5.3 mmol/L 10/27/2024 4:00 PM [facility] Cl 101 98 - 107 mmol/L 10/27/2024 4:00 PM [facility] CO2 26 22 - 32 mmol/L 10/27/2024 4:00 PM [facility] BUN 12 7 - 23 mg/dL 10/27/2024 4:00 PM [facility] Creatinine 0.83 0.50 - 1.20 mg/dL 10/27/2024 4:00 PM [facility] Glucose 361(H) 65 - 99 mg/dL 10/27/2024 4:00 PM [facility] Calcium 9.8 8.6 - 10.5 mg/dL 10/27/2024 4:00 PM [facility] Anion Gap 11 5 - 15 10/27/2024 4:00 PM [facility] eGFR 85 >=60 mL/min/1. 73m2 10/27/2024 4:00 PM [facility] Comment:The estimated glomer ular [...] MD LAB BLOOD ORDERABLES Final Result [facility] [address] [place] [address], from Last 3 Months or Most Recently Relevant to Health Maintenance Insurance [employer] Care Teams Machine Stoppage Frequency Checker Relationship Specialty Start Date End Date [address] [address] PCP - General 10/27/24
== END 2025-02-21 15:55 | disposition home or self-care (01) ==
LOC: HO.HPSW 15:26
PROVIDERS: PCP Nurse Practitioner Family; Referring Provider Nurse Practitioner Family; Visit Provider Nurse Practitioner Family
DX: R05.9 Cough, unspecified (principal); Z87.891 Personal history of nicotine dependence; Z87.01 Personal history of pneumonia (recurrent)
CPT/HCPCS: 99204

== ENCOUNTER → 2025-02-21 15:25 | Outpatient (BNVA) | payer OTHER, SELFPAY | PROVIDERS: PCP Nurse Practitioner Family; Referring Provider Nurse Practitioner Family; Visit Provider Nurse Practitioner Family | DX: R05.9 Cough, unspecified (principal); Z87.01 Personal history of pneumonia (recurrent); Z87.891 Personal history of nicotine dependence; Z91.09 Other allergy status, other than to drugs and biological substances | CPT/HCPCS: 99202 ==

== ENCOUNTER 2025-04-07 12:27 | Outpatient (REF) | payer OTHER, SELFPAY ==
--- NOTE | ~2025-04-07 | MM_ITS ---
EXAMINATION: DXA BONE DENSITY AXIAL HISTORY: Z13.820 - Encounter for screening for osteoporosis TECHNIQUE: [employer] Dual energy absorptiometry (DEXA) of the lumbar spine, total left hip, and femoral neck was performed. COMPARISON: There are no prior studies for comparison. FINDINGS: The bone mineral density of the lumbar spine is 1.217 with a T-score of 0.4, and a Z-score of 0.8. This is indicative of normal bone mineral density. The bone mineral density of the left total hip is 0.921 with a T-score of -0.7, and a Z-score of -0.3. This is indicative of normal bone mineral density. The bone mineral density of the left femoral neck is 0.875 with a T-score of -1.2, and a Z-score of -0.4. This is indicative of osteopenia. FRACTURE RISK: The FRAX index suggests a risk of major osteoporotic fracture of 5.2%, and of hip fracture 0.3%. MM/XR DEXA axial skeleton IMPRESSION: Based on bone mineral density, and according to World Health Organization (WHO) criteria, the diagnosis is consistent with osteopenia. All bone density values are in grams per centimeter squared (g/cm2). Statistically, 68% of repeat scans fall within 1 SD (+/- 0.010 g/cm2 for AP spine L1-L4) and 1 SD (+/- 0.012 g/cm2 for femur total) FRAX is a trademark of the [employer], a World Health Organization (WHO) Collaborating Center. Electronically signed by: Vahid Diaz MD 04/07/2025 01:42 PM EDT
--- OUTSIDE RECORDS SUMMARY | 2025-04-07 12:34 | XMS_ITS | Referral Summary ---
Author Organization [facility] Address [address] [place] [address] Care Team Providers Care Vehicle Dismantler Name Role Phone [facility] Primary Care Provider +1- [phone] Allergies Active Allergy Reactions Criticality Noted Date [...] Not on file Procedures * Due to [place] [employer] law, this organization might not be sharing negative HIV tests. Procedure Name Priority Date/Time Associated Diagnosis Comments BASIC METABOLIC PANEL STAT 10/27/2024 2:50 PM EST from Last 3 Months or Most Recently Relevant to Health Maintenance Results * Due to [place] [employer] law, this organization might not be sharing negative HIV tests. * (ABNORMAL) BMP - Basic Metabolic Panel (10/27/2024 2:50 PM EST) NA 138 135 - 145 mmol/L 10/27/2024 4:00 PM EST [facility] K 3.9 3.5 - 5.3 mmol/L 10/27/2024 4:00 PM EST [facility] Cl 101 98 - 107 mmol/L 10/27/2024 4:00 PM EST [facility] CO2 26 22 - 32 mmol/L 10/27/2024 4:00 PM EST [facility] BUN 12 7 - 23 mg/dL 10/27/2024 4:00 PM EST [facility] Creatinine 0.83 0.50 - 1.20 mg/dL 10/27/2024 4:00 PM EST [facility] Glucose 361(H) 65 - 99 mg/dL 10/27/2024 4:00 PM EST [facility] Calcium 9.8 8.6 - 10.5 mg/dL 10/27/2024 4:00 PM EST [facility] Anion Gap 11 5 - 15 10/27/2024 4:00 PM EST [facility] eGFR 85 >=60 mL/min/1. 73m2 10/27/2024 4:00 PM EST [facility] Comment:The estimated glomer ular [...] Cortez MD LAB BLOOD ORDERABLES Final Result [facility] [address] [place] [address], from Last 3 Months or Most Recently Relevant to Health Maintenance Insurance # [address] [place], [place] [id number] [employer] Care Teams Vehicle Dismantler Relationship Specialty Start Date End Date [address] [address] PCP - General 10/27/24
--- OUTSIDE RECORDS SUMMARY | 2025-04-07 12:34 | XMS_ITS | Clinical Summary ---
Author Organization [facility] Address [address] [place] [address] Care Team Providers Care Cryogenics Engineer Name Role Phone [facility] Primary Care Provider [phone]- [phone] Allergies Active Allergy Reactions Criticality Noted Date [...] Vaccines (1 of 2) 2022 COVID-19 Vaccine ( - season) 2024 Alcohol/Substance Use Screening 11/30/2024 Depression Screening and Follow-Up 11/30/2024 Social Drivers of Health Annual Screening 11/30/2024 Influenza Vaccine (Season Ended) 2025 Basic Metabolic Panel 10/27/2025 10/27/2024 RSV Vaccine (60+ years old a nd patients) (1 - 1-dose 75+ series) 2047 Procedures * Due to [place] freee law, this organization might not be sharing negative HIV tests. Procedure Name Priority Date/Time Associated Diagnosis Comments BASIC METABOLIC PANEL STAT 10/27/2024 2:50 PM EST from Last 3 Months or Most Recently Relevant to Health Maintenance Results * Due to [place] freee law, this organization might not be sharing negative HIV tests. * (ABNORMAL) BMP - Basic Metabolic Panel (10/27/2024 2:50 PM EST) NA 138 135 - 145 mmol/L 10/27/2024 4:00 PM EST [facility] K 3.9 3.5 - 5.3 mmol/L 10/27/2024 4:00 PM [facility] Cl 101 98 - 107 mmol/L 10/27/2024 4:00 PM [facility] CO2 26 22 - 32 mmol/L 10/27/2024 4:00 PM [facility] BUN 12 7 - 23 mg/dL 10/27/2024 4:00 PM [facility] Creatinine 0.83 0.50 - 1.20 mg/dL 10/27/2024 4:00 PM [facility] Glucose 361(H) 65 - 99 mg/dL 10/27/2024 4:00 PM [facility] Calcium 9.8 8.6 - 10.5 mg/dL 10/27/2024 4:00 PM [facility] Anion Gap 11 5 - 15 10/27/2024 4:00 PM [facility] eGFR 85 >=60 mL/min/1. 73m2 10/27/2024 4:00 PM [facility] Comment:The estimated glomer ular [...] MD LAB BLOOD ORDERABLES Final Result [facility] [address] [place] [address], from Last 3 Months or Most Recently Relevant to Health Maintenance Insurance [place] [address] Care Teams Cryogenics Engineer Relationship Specialty Start Date End Date [address] [address] PCP - General 10/27/24
--- OUTSIDE RECORDS SUMMARY | 2025-04-07 12:34 | XMS_ITS | Clinical Summary ---
Author Organization [facility] Address [address] [place] [address] Care Team Providers Care School Fundraising Director Name Role Phone Raegan Mitchell NP Primary Care Provider [phone] Social History Tobacco Use Types Packs/Day Years [...] - 2023-2 5 season) 2024 Influenza Vaccine (Season Ended) 2025 DTaP,Tdap,and Td Vaccines (3 - Td or [...] age to complete this topic Meningococcal B Vaccine Aged Out No l onger eligible based on patient's age to complete this topic RSV Immunization Patients Under 20 months Aged Out No longer eligible b ased on patient's age to complete this topic Varicella Vaccines Aged Out No longer eligible based on patient's age to complete this topic Care Teams School Fundraising Director Relationship Specialty Start Date End Date Raegan Mitchell NP [address] [place] [address] [address] [place] [address] PCP - General 01/13/23
== END 2025-04-07 12:28 | disposition home or self-care (01) ==
LOC: HO.MAMMO 12:27
PROVIDERS: PCP Nurse Practitioner Family; Visit Provider Nurse Practitioner Family
DX: Z13.820 Encounter for screening for osteoporosis (principal); Z78.0 Asymptomatic menopausal state
CPT/HCPCS: 77080

== ENCOUNTER → 2025-04-07 13:00 | Outpatient (BNV) | payer OTHER, SELFPAY | PROVIDERS: PCP Nurse Practitioner Family; Visit Provider Radiology Diagnostic Radiology | DX: E28.39 Other primary ovarian failure (principal) | CPT/HCPCS: 77080 ==

== ENCOUNTER 2025-07-26 14:35 | Outpatient (AMB) | payer OTHER, SELFPAY ==
--- NOTE | 2025-07-26 14:37 | A.OFFPC_ITS ---
Intake Visit Reasons: Letter Intake Note: Telehealth extended work letter Mender Hand Required: No Allergies bee pollen (BEE STINGS) Allergy (Severe, Verified 07/26/25 14:46) ANAPHYLAXIS tramadol Allergy (Severe, Verified 07/26/25 14:46) mental confusion cinnamon (CINNAMON) Allergy (Intermediate, Verified 07/26/25 14:46) HIVES trazodone (TRAZODONE) Allergy (Intermediate, Verified 07/26/25 14:46) PER H&P, ? Medication List - Last Reconciled 07/26/25 by KAMERON Hirsch- alcohol swabs (BD Alcohol Swabs) pad topical amitriptyline 25 mg PO BEDTIME blood-glucose meter (OneTouch Verio Flex Meter) As directed blood-glucose meter (OneTouch Verio Flex Start kit) As directed duloxetine 120 mg PO DAILY insulin glargine (Lantus Solostar U-100 Insulin) 20 units subcut BEDTIME mirtazapine 7.5 mg PO BEDTIME pen needle, diabetic (BD Ultra-Fine Short Pen Needle) As directed Tobacco use date assessed: 02/02/25 Dental Screening Dental Screen Date: 02/02/25 HPI HPI Comments 2 History of Present Illness0 Details 55-year-old female with DM2 , generalize d anxiety disorder MDD, bilat carpal tunnel syndrome, marijuana use, family hx of colon ca Status post umbilical hernia repair, back surgery, tonsillectomy, tubal ligation, neck surgery, wisdom tooth extraction - The patient is a 55-year-old female pr esenting for hospital discharge fu: [facility] ED 06/26/25 R knee injury. Work up reviewed. - ER diagnosed knee sprain, no dislocati on or tear. - Joint effusion present post-fall. - Sent home w/ Oxycodone, crutches and s plint. She has been out of work since and is ready to return to work. She has normal ambulation. No more pain or swelling. - Expected return to work on 07/11. Req uesting a letter for this. Review of Systems - Musculoskeletal: Reports knee injury, reports normal leg movement post-injury. Assessment and Plan 1. Knee Sprain, Right - Confirmed knee sprain, recovered ambul ation. - No further interventions required; obs erve for any complications. - Return to work note will be faxed to iván lim[employer] employer @ [phone] and the original mailed to her, per her request. Patient was given time to ask questions. All questions were answered to their satisfaction. Telehealth Attestation This visit was conducted via telehealth, and the documentation accurately reflects the telehealth interaction. The patient has been explained that this is an interactive (audio/video) telehealth encounter and what that consists of. The patient understands and wishes to proceed. [employer] platform was used. Total time spent caring for the patient today was 21 minutes. This includes time spent before the visit reviewing the chart, time spent during the visit, and time spent after the visit on documentation, reviewing laboratory results, diagnostic imaging, medications, performing a medically necessary evaluation, counseling on diagnoses, care coordination, ordering appropriate tests, ordering appropriate medications, review of tests performed by other providers, reporting test results with the patient, communication with other healthcare providers. ON LICENSE OF [facility] Medical History (Updated 02/22/25 @ 08:55 by Rachel Long NP) Acute abdomen Anxiety Back pain Bilateral carpal tunnel syndrome Chronic pain of left lower extremity Colon cancer screening DDD (degenerative disc disease) Depression Diabetes mellitus Diabetes mellitus type 2 with complications Hyperglycemia Over weight Screening mammogram for breast cancer Surgical History (Updated 02/10/25 @ 15:11 [facility] History of back surgery History of colonoscopy (~2019) History of neck surgery History of tonsillectomy History of tubal ligation History of umbilical hernia repair History of wisdom tooth extraction Family History Father Liver failure Mother No problems noted. 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 Vahid Mayberry, Maren Harris, Chema Singh and colleagues, with an educational torito from [email or web address]. Physical exam (Primary Care) Tobacco/Smoking Status: Tobacco use Status Tobacco use date assessed 02/02/25 07/26/25 14:38 Patient Tobacco Use Status Former Tobacco user 07/26/25 14:38 e-Cigarette/Vaping Use Never Used 07/26/25 14:38 Thrive Assessment: Date of Thrive Assessment Date Thrive assessed 02/02/25 07/26/25 14:38 Telehealth Telehealth Telehealth Platform: [employer] Location of provider rendering services: practice address Location of patient: address on file Patient Identification confirmed using: Name, : Yes Telehealth method: voice only Patient verbally consented to treatment: Yes Patient verbally consented to billing insurance company: Yes Patient informed of any privacy concerns related to visit: Yes Minutes spent on Phone/Video with Pt.: 10 Results Reviewed Results Reviewed: Coding Level of Care Code Tele Est Pt Level 3 (12838) Complex EM visit Add On G2211 Diagnoses Hospital discharge follow-up Z09 Injury of right knee, initial encounter S89.91XA Encounter type: initial encounter Assessment & Plan Assessment & Plan (1) Hospital discharge follow-up: Code(s): Z09 - Encounter for follow-up examination after completed treatment for conditions other than malignant neoplasm (2) Right knee injury: Code(s): S89.91XA - Unspecified injury of right lower leg, initial encounter Qualifiers: Encounter type: initial encounter Qualified Code(s): S89.91XA - Unspecified injury of right lower leg, initial encounter Plan .
--- OUTSIDE RECORDS SUMMARY | 2025-07-26 15:32 | XMS_ITS | Clinical Summary ---
Author Organization [facility] Address [address] [place] [address] Care Team Providers Care Telecommunications Technician Name Role Phone [facility] Primary Care Provider [phone] Allergies Active Allergy Reactions Criticality Noted Date [...] 75 10/27/2024 4:56 PM EST Temperature 36.5 C (97.7 F) 10/27/2024 4:56 PM EST Respiratory Rate 19 10/27/2024 4:56 PM EST [...] 2022 COVID-19 Vaccine (1 - season) 2024 Alcohol/Substance Use Screening 11/30/2024 Depression Screening and Follow-Up 11/30/2024 Social Drivers of Health Annual Screening 11/30/2024 Influenza Vaccine (#1) 2025 Basic Metabolic Panel 10/27/2025 10/27/2024 RSV Vaccine (60+ years old a nd patients) (1 - 1-dose 75+ series) 2047 Procedures * Due to [place] [employer] law, this organization might not be sharing negative HIV tests. Procedure Name Priority Date/Time Associated Diagnosis Comments BASIC METABOLIC PANEL STAT 10/27/2024 2:50 PM EST from Last 3 Months or Most Recently Relevant to Health Maintenance Results * Due to [place] [employer] law, this organization might not be sharing negative HIV tests. * (ABNORMAL) BMP - Basic Metabolic Panel (10/27/2024 2:50 PM EST) NA 138 135 - 145 mmol/L 10/27/2024 4:00 PM EST [facility] K 3.9 3.5 - 5.3 mmol/L 10/27/2024 4:00 PM [facility] Cl 101 98 - 107 mmol/L 10/27/2024 4:00 PM [facility] CO2 26 22 - 32 mmol/L 10/27/2024 4:00 PM [facility] BUN 12 7 - 23 mg/dL 10/27/2024 4:00 PM [facility] Creatinine 0.83 0.50 - 1.20 mg/dL 10/27/2024 4:00 PM [facility] Glucose 361(H) 65 - 99 mg/dL 10/27/2024 4:00 PM [facility] Calcium 9.8 8.6 - 10.5 mg/dL 10/27/2024 4:00 PM [facility] Anion Gap 11 5 - 15 10/27/2024 4:00 PM [facility] eGFR 85 >=60 mL/min/1. 73m2 10/27/2024 4:00 PM [facility] Comment:The estimated glomer ular [...] 2:50 PM EST 10/27/2024 2:54 PM EST Shahla Cortez MD LAB BLOOD ORDERABLES Final Result [facility] [address] [place] [address], from Last 3 Months or Most Recently Relevant to Health Maintenance Insurance [employer] Care Teams Telecommunications Technician Relationship Specialty Start Date End Date [address] [address] PCP - General 10/27/24
--- OUTSIDE RECORDS SUMMARY | 2025-07-26 15:32 | XMS_ITS | Clinical Summary ---
Author Organization [facility] ity Address [address] [place] [address] Care Team Providers Care Strategic Communications Specialist Name Role Phone Raegan Mitchell NP Primary Care Provider [phone] Social History Tobacco Use Types Packs/Day Years [...] of 3 - 19+ 3-dose series) 1991 Cervical Cancer Screening: P ap Smear 1993 Pneumococcal Vaccine: 50+ Years (1 of 1 - PCV) 2022 Zoster Vaccines (1 of 2) 2022 Colorectal Cancer Screening: Colonoscopy 11/02/2022 HIV Screening 11/02/2022 Hepatitis C Screening 11/02/2022 Social Influencers of Health Screening 11/02/2022 COVID-19 Vaccine (1 - 2023-2 5 season) 2024 Depression Screening 11/30/2024 Influenza Vaccine (#1) 2025 DTaP,Tdap,and Td Vaccines (3 - Td [...] age to complete this topic Care Teams Strategic Communications Specialist Relationship Specialty Start Date End Date Raegan Mitchell NP [address] [place] [address] [address] [place] [address] PCP - General 01/13/23
== END 2025-07-26 14:56 | disposition home or self-care (01) ==
LOC: HO.HMCFM 14:35
PROVIDERS: PCP Nurse Practitioner Family; Visit Provider Nurse Practitioner Family
DX: Z09 Encounter for follow-up examination after completed treatment for conditions other than malignant neoplasm (principal); S89.91XA Unspecified injury of right lower leg, initial encounter